=== PATIENT | male | born 1985 | race Caucasian/White ===

== ENCOUNTER → 2021-04-29 14:30 | Outpatient (BNVA) | payer MEDICAID, SELFPAY | PROVIDERS: PCP General Practice; Referring Provider General Practice; Visit Provider Surgery | DX: K40.90 Unilateral inguinal hernia, without obstruction or gangrene, not specified as recurrent (principal) | CPT/HCPCS: 99202 ==

== ENCOUNTER 2021-05-11 08:48 | Day surgery (SDC) | payer MEDICAID, SELFPAY ==
[2021-05-06 10:04] VITALS: BMI 31.2
--- NOTE | 2021-05-10 09:29 | HO.ANESPROP2 ---
Documented by User: Brittany Riddle 05/10/21 09:30 HPI - Anesthesia Eval Consult details Narrative: 36yo M for Right Hernia Repair Inguinal with Mesh [facility] Active Problems Active Problems: All Active Problems (Updated 04/29/21 @ 15:31 by Haroldo Abraham MD) Right inguinal hernia (Acute) Smoker (Acute) Past Medical History Medical History Right inguinal hernia Smoker Family History Family History Mother Breast cancer Surgical History Surgical History History of excision of mass Social History Social History Alcohol intake: never Patient Tobacco Use Status: Current everyday Tobacco user Use of substances other than those prescribed or required for medical reasons: Yes Are you DNR?: No Advance Directives: No Advance Directives Information Provided: Yes Meds Allergies Allergy/AdvReac Type Severity Reaction Status Date / Time No Known Allergies Allergy Verified 05/11/21 09:34 Home Medications Medication Instructions Recorded Confirmed Last Taken Type No Known Home Meds 04/29/21 05/06/21 Unknown History Exam Exam Date and Time: May 10, 2021 0929 Height,Weight and Vital Signs: Height 5 ft 7 in Weight 90.5 kg Assessment and Plan Assessment Anesthesia Assessment: Chart Reviewed Documented by User: Pau Aguirre 05/11/21 09:45 [facility] Past Medical History Medical History Right inguinal hernia Smoker Family History Family History Mother Breast cancer Surgical History Surgical History History of excision of mass Social History Social History Alcohol intake: never Patient Tobacco Use Status: Current everyday Tobacco user Use of substances other than those prescribed or required for medical reasons: Yes Are you DNR?: No Advance Directives: No Advance Directives Information Provided: Yes Meds Allergies Allergy/AdvReac Type Severity Reaction Status Date / Time No Known Allergies Allergy Verified 05/11/21 09:34 Home Medications Medication Instructions Recorded Confirmed Last Taken Type No Known Home Meds 04/29/21 05/06/21 Unknown History Exam Airway Mallampati Class: II TM Dist: >3cm Neck ROM: Full Assessment and Plan Assessment Anesthesia Assessment: Anesthesia Plan Discussed and Chart Reviewed Final Anesthetic Review NPO: Yes ASA Class: II Final Preanesthetic Review: No Changes in Pt Med Stat, Meds/Allgs Chart Reviewed, Consent Obtained/Reviewed and Anes Risks/Benef Reviewed Patient Risk: Low Procedure Risk: Low Assessment/Block/Sedation in SS: Assess/Block/Sedation-SS Anesthetic Plan Anesthetic Plan: GA Disposition: Standard PACU
[2021-05-11 09:35] VITALS: BP 123/82; PULSE 68; RESP 18; TEMP 36.4; O2SAT 96
[2021-05-11] MEDS: Lactated Ringers 1,000 ML 100 ML IVCONT (09:46)
--- NOTE | 2021-05-11 09:58 | MHC.SHP ---
Pre-Procedural Eval Section A Date of Service: 05/11/21 Section B Chief Complaint: Right Inguinal Hernia Allergies: Allergies Allergy/AdvReac Type Severity Reaction Status Date / Time No Known Allergies Allergy Verified 05/11/21 09:34 Plan I have reviewed the history and physical and performed a pertinent physical examination on my patient. No changes have occurred unless specified.
[2021-05-11 11:25] VITALS: BP 127/67; PULSE 58; RESP 18; TEMP 36.9; O2SAT 95
[2021-05-11 11:30] VITALS: BP 109/84; PULSE 63; RESP 16; O2SAT 95
[2021-05-11 11:35] VITALS: BP 106/68; PULSE 60; RESP 16; O2SAT 94
--- NOTE | 2021-05-11 11:38 | W.PM.OPN ---
Operative Note Operative Note Date of Service: 05/11/21 Narrative: Preop diagnosis: Right inguinal hernia Postop diagnosis: Right inguinal hernia, indirect Procedure: Repair of right inguinal hernia with mesh Surgeon: Haroldo Abraham MD The patient is a 36-year-old male with a reducible mass on the right groin consistent with a right inguinal hernia. He wanted to proceed with repair in view of symptoms. He understood the technique of procedure. He was aware of the risks, benefits, and alternatives He was brought to the operating room placed supine the table under general anesthesia via laryngeal mask airway. The right groin was prepped and draped in the usual sterile fashion. A surgical time-out was done. The patient received cefazolin 2 g IV preoperatively. I infiltrated the planned line of incision using lidocaine 1%. I made a short incision along an imaginary line from the anterior superior iliac spine to the pubic ramus using a blade 15 and this was carried down through the full-thickness of the skin subcutaneous fat down to the fascia. I bluntly dissected the area of the external oblique aponeurosis to define the external ring. I made an incision on the external oblique aponeurosis along its fibers using a blade 15 and this was extended inferomedially to connect with the external ring using an open tip pair of scissors. The inguinal canal was therefore entered. I applied hemostats on the edges of the divided external oblique aponeurosis. I applied a self-retaining retractor. I bluntly dissected the underside of the aponeurosis to create a pocket for the mesh. I then bluntly dissected the spermatic cord and its contents including a large hernia he using my index finger until was able to pass a [place] drain around this. This [place] drain was used for retraction. With traction countertraction was able to identify a hernia sac. There was a lot of a large fat containing hernia. I bluntly dissected the hernia off of the rest of the cord contents using DeBakey forceps. Part of the was intimately adherent to the cord contents so I had to divide this to be able to separate this. With continued dissection I was able to reduce this entire hernia including all its fat contents through the internal ring. This was therefore an indirect hernia. I was able to identify the vas deferens and its accompanying vessels in these were protected during the dissection. I reinforced the internal ring with a medium-sized plug. The plug was secured with Prolene 2-0 sutures using its inner leaves to the shelving edge of the inguinal ligament laterally, and the internal oblique superiorly and medially. I reinforced the floor of the canal with a keyhole mesh. The tails of the mesh were passed around the cord at the level of the internal ring and were secured together using Prolene 2-0 sutures. I secured the mesh to the shelving edge of the inguinal ligament laterally and the internal oblique superiorly and medially as well as the pubic ramus inferomedially with Prolene 2-0 sutures. I observed for hemostasis. Once hemostasis was ensured I proceeded to then irrigate. I closed the external oblique aponeurosis with a running Dexon 2-0 stitch to re-create the external ring. I reapposed the subcutaneous layer with Dexon 3-0 interrupted sutures. Skin closure was achieved with Dexon 4-0 subcuticular running stitch. Steri-Strips and dressings were applied. I infiltrated the area around the incision with Marcaine 0.5% for postop analgesia. The procedure was then completed. The patient tolerated the procedure well. There were no complications noted. Initial and final counts of sponges and instruments were correct. Estimated blood loss was about 15 cc. The patient was extubated without difficulty and transferred to the recovery room with stable vital signs.
[2021-05-11 11:40] VITALS: BP 121/62; PULSE 60; RESP 16; O2SAT 96
--- NOTE | 2021-05-11 11:45 | P.BOP_ITS ---
Brief Operative Note Date of Service: 05/11/21 Pre-op diagnosis: Right inguinal hernia Post-op diagnosis: same (Indirect) Procedure: Repair of right inguinal hernia with mesh Implants: Mesh Surgeon: Haroldo Abraham MD Anesthesia: GLMA Was an Application Technical Designer used for this Procedure?: No Estimated blood loss (mL): 10 Pathology: none sent Condition: stable Disposition: PACU
[2021-05-11] MEDS: Acetaminophen 325 MG TABLET 650 MG PO (11:48)
[2021-05-11] MEDS: oxyCODONE HCl Immed Release 5 MG TABLET PO (11:49)
[2021-05-11 11:55] VITALS: BP 128/78; PULSE 56; RESP 16; TEMP 36.9; O2SAT 97
== END 2021-05-11 12:10 | disposition home or self-care (01) ==
PROVIDERS: PCP Internal Medicine; Visit Provider Surgery
PROC: (CPT 49505; principal; 2021-05-11 11:00)
DX: K40.90 Unilateral inguinal hernia, without obstruction or gangrene, not specified as recurrent (principal); F17.200 Nicotine dependence, unspecified, uncomplicated
CPT/HCPCS: 49505; J0690; J1100; J2250; J2405; J3010

== ENCOUNTER → 2021-05-27 14:41 | Outpatient (BNVA) | payer MEDICAID, SELFPAY | PROVIDERS: PCP Internal Medicine; Referring Provider Internal Medicine; Visit Provider Surgery | DX: Z48.815 Encounter for surgical aftercare following surgery on the digestive system (principal); Z87.19 Personal history of other diseases of the digestive system | CPT/HCPCS: 99212 ==

== ENCOUNTER → 2021-06-09 09:52 | Outpatient (BNVA) | payer MEDICAID, SELFPAY | PROVIDERS: PCP Internal Medicine; Visit Provider Surgery | DX: Z48.815 Encounter for surgical aftercare following surgery on the digestive system (principal); Z87.19 Personal history of other diseases of the digestive system | CPT/HCPCS: 99212 ==

== ENCOUNTER → 2021-07-12 13:30 | Outpatient (BNVA) | payer MEDICAID, SELFPAY | PROVIDERS: PCP Internal Medicine; Referring Provider Internal Medicine; Visit Provider Surgery | DX: K40.90 Unilateral inguinal hernia, without obstruction or gangrene, not specified as recurrent (principal) | CPT/HCPCS: 99211 ==

== ENCOUNTER 2021-09-16 22:44 | Emergency (ER) | payer MEDICAID, SELFPAY ==
--- NOTE | 2021-09-16 | ECG_ITS ---
Test Reason : OD Blood Pressure : / mmHG Vent. Rate : 074 BPM Atrial Rate : 074 BPM P-R Int : 132 ms QRS Dur : 094 ms QT Int : 446 ms P-R-T Axes : 054 044 050 degrees QTc Int : 495 ms Normal sinus rhythm Nonspecific T wave abnormality Abnormal ECG When compared with ECG of 16-SEP-2021 23:05, Vent. rate has decreased BY 39 BPM Referred By: Austin Julio Electronically Signed By:DENZEL MORA MD
--- NOTE | ~2021-09-16 | CT_ITS ---
EXAMINATION: CT HEAD WITHOUT CONTRAST CLINICAL INFORMATION: Confusion COMPARISON: None TECHNIQUE: Contiguous axial imaging was performed from the skull base to vertex without intravenous administration of contrast. This CT examination was performed using dose optimization techniques as appropriate, variously including the following: *Automated exposure control *Adjustment of mA and/or kV according to patient size (this includes techniques or standardized protocols for targeted exams where dose is matched to indication/reason for exam; i.e. extremities or head) *Use of iterative reconstruction technique DLP: 746 mGy-cm FINDINGS: There is no evidence of acute intracranial hemorrhage or territorial infarction. No abnormal mass effect or midline shift is seen. Arreola to white matter differentiation is well preserved. No extra-axial fluid collections are identified. The ventricles are normal in size. There is no abnormal attenuation within the brain parenchyma. The osseous structures and soft tissues are normal. Partial opacification of the left ethmoid sinus. The mastoid air cells and visualized portions of the remainder of the the paranasal sinuses are well aerated. CT/CT head/brain wo con IMPRESSION: No CT evidence of acute intracranial pathology. Left ethmoid sinus disease.
[2021-09-16 22:56] LABS: Glucose, Whole Blood 122 mg/dL (60-115)
[2021-09-16 23:11] VITALS: BP 104/61; BP 153/96; PULSE 106; PULSE 110; RESP 22; TEMP 36.9; O2SAT 95; BMI 36.0
[2021-09-16 23:13] LABS: MANUAL DIFF FLAG NO
[2021-09-16 23:21] LABS: Glucose, Whole Blood 111 mg/dL (60-115)
[2021-09-16 23:21] LABS: Basophils Absolute Auto 0.1 X10*3/uL (0.0-0.2); Basophils Percent Auto 0.4 % (0-2); Eosinophils Absolute Auto 0.1 X10*3/uL (0.0-0.4); Hematocrit 48.1 % (42.0-52.0); Hemoglobin 16.7 g/dl (14.0-18.0); Imm Gran Abs Auto 0.03 X10*3/uL (0.00-0.03); Imm Gran Pct Auto 0.3 % (0.0-0.4); Lymphocytes Absolute Auto 2.6 X10*3/uL (1.2-4.9); Lymphocytes Percent Auto 22.2 % (20-40); Mean Corpuscular HGB Conc 34.7 g/dl (31.0-36.0); Mean Corpuscular Hemoglobin 31.9 pg (27.0-33.0); Mean Corpuscular Volume 91.8 fL (80.0-98.0); Mean Platelet Volume 9.7 fL (9.4-12.4); Monocytes Absolute Auto 0.5 X10*3/uL (0.1-1.2); Monocytes Percent Auto 4.2 % (2-11); Neutrophils Absolute Auto 8.3 x10*3/uL (2.0-8.3); Neutrophils Percent Auto 71.9 % (45-73); Platelet Count 251 X10*3/uL (160-400); Red Blood Count 5.24 X10*6/uL (4.60-5.80); Red Cell Distribution Width 13.1 % (11.0-16.0); White Blood Count 11.5 X10*3/uL (4.8-10.8)
[2021-09-16 23:36] LABS: Alanine Aminotransferase 99 U/L (0-40); Albumin Level 4.7 g/dL (3.5-5.0); Alkaline Phosphatase 71 U/L (39-117); Anion Gap 17 (12-20); Aspartate Amino Transferase 54 U/L (5-37); Bilirubin Direct 0.2 mg/dL (0.0-0.5); Bilirubin Total 0.5 mg/dL (0.0-1.0); Blood Urea Nitrogen 13 mg/dL (9-16); Calcium 9.8 mg/dL (8.4-10.2); Carbon Dioxide 21 mmol/L (22-29); Chloride 105 mmol/L (96-108); Creatinine Clr Calc Pharmacy 90.2; Estimated Glomerular Filt Rate > 60; Glucose Random 125 mg/dL (60-115); Lipase 25 U/L (8-78); Magnesium 2.4 mg/dL (1.6-2.6); Potassium 3.5 mmol/L (3.3-5.1); Salicylate < 5.0 mg/dL (15-30); Sodium 139 mmol/L (135-145); Total Protein 7.9 g/dL (6.5-8.0)
[2021-09-16 23:43] LABS: Ethanol < 10 mg/dL
[2021-09-16 23:49] LABS: Acetaminophen LAB < 1 mcg/mL (<30)
[2021-09-17] VITALS (16 sets, daily range): BP systolic 81–114; BP diastolic 41–66; PULSE 55–79; RESP 14–26; TEMP 36.6; O2SAT 94–99
--- NOTE | 2021-09-17 00:56 | ED.OVERDOSE ---
HPI - Overdose General Chief Complaint: Overdose Stated Complaint: OD/SI Time Seen by Provider: 09/16/21 23:11 Source: EMS Mode of arrival: EMS Limitations: altered mental status History of Present Illness HPI Narrative: 36-year-old male came in by ambulance for further evaluation of overdosed. Patient brought in after overdosed on unknown amount of 900 mg ibuprofen, and 30 pills of 1 mg of Klonopin, 12 tablets of Xanax, unknown amount and strength of clonidine, unknown amount of melatonin, patient arrived to the ED unresponsive, able to protect airway with good gag reflex, unable to provide history due to lethargy. Above history was obtained from EMS report. Patient and his significant other both overdosed on the same medications. Related Data Previous Rx's Medication Instructions Recorded ibuprofen 600 mg tablet 600 mg PO Q6H PRN #30 tab 05/11/21 Allergies Allergy/AdvReac Type Severity Reaction Status Date / Time No Known Allergies Allergy Verified 07/12/21 14:08 Review of Systems Review of Systems: Yes Unobtainable due to mental status PMFSH Past Medical History Medical History Right inguinal hernia Smoker Surgical History History of excision of mass History of right inguinal hernia repair Family History Family History Mother Breast cancer Social History Social History Alcohol intake: never Patient Tobacco Use Status: Current everyday Tobacco user Advance Directives: No Advance Directives Information Provided: No Physical Exam Vital Signs: Vital Signs: Last Vital Signs Temp 98.4 F 09/16/21 23:11 Pulse 71 09/17/21 00:46 Resp 26 H 09/17/21 00:46 BP 95/56 L 09/17/21 01:03 Pulse Ox 96 09/17/21 01:03 Oxygen Flow Rate 2 09/16/21 23:11 Body Mass Index 36.0 Vital signs have been reviewed as appeared to be correct. Blood pressure normal. Heart rate normal. Respiration rate normal. Temperature normal. Oxygen saturation normal. Appearance: Lethargic, only respond to chest rubbing. Head: Normal external exam. Normocephalic. Atraumatic. No Garza signs noted. No raccoon eyes noted Eyes: PERRLA. EOMI. Conjunctiva and sclera normal. Eyelids normal. ENT: TM's Normal. Pharynx normal. Uvula midline. Moist mucous membranes. No trismus noted. No drooling noted. No muffled voice noted. Neck: Normal inspection. Neck supple. FROM. No adenopathy. Thyroid Normal. No meningeal signs. No neck mass noted. CVS: Normal heart rate and rhythm. Heart sound normal. No murmurs noted. Pulses normal throughout. Respiratory: No respiratory distress. Painless inspiration. Breath sounds normal. No wheezes/rales/rhonchi noted. Chest nontender. No accessory muscle usage noted or decreased air movement noted. Abdomen: Soft and nontender. Bowel sounds normal in all 4 quadrants. No distention noted. No organomegaly noted. No visible injury noted. Back: No CVA tenderness. Full range of motion noted. Skin: Skin warm and dry. Normal skin color. Normal skin turgor. No rashes/lesions/lacerations noted. Extremities: No lower extremity edema. Extremities exhibit normal range of motion. Extremities nontender. Neuro: Lethargic. Cranial nerve exam: II-XII are grossly intact No motor deficit. No sensory deficit. Reflexes normal. Course Course Course Narrative: Assessment and plan. 36-year-old male overdosed on multiple medications please refer to HPI. 1. Continue monitoring airway. 2. Repeat labs in 4 hours. 3. Replete potassium and keep it above 4. 4. Cardiac monitoring. 5. Case discussed with poison Control to monitor the patient for 6-8 hours. 6. Psych evaluation when he is more awake. 7. Consider fluid/ vasopressor for hypotension. Case signed to Dr. Julio. MDM - Overdose Medical Records Attestation: I reviewed the patient's medical records. Lab Data Attestation: I reviewed the patient's lab results. Result diagrams: 09/16/21 23:08 09/16/21 23:08 Labs: Lab Results 09/16/21 09/16/21 09/16/21 Range/Units 22:54 23:08 23:08 WBC 11.5 H (4.8-10.8) X10*3/uL RBC 5.24 (4.60-5.80) X10*6/uL Hgb 16.7 (14.0-18.0) g/dl Hct 48.1 (42.0-52.0) % MCV 91.8 (80.0-98.0) fL MCH 31.9 (27.0-33.0) pg MCHC 34.7 (31.0-36.0) g/dl RDW 13.1 (11.0-16.0) % Plt Count 251 (160-400) X10*3/uL MPV 9.7 (9.4-12.4) fL Immature Gran % (Auto) 0.3 (0.0-0.4) % Neut % (Auto) 71.9 (45-73) % Lymph % (Auto) 22.2 (20-40) % [place] % (Auto) 4.2 (2-11) % Eos % (Auto) 1.0 (0-4) % Baso % (Auto) 0.4 (0-2) % Lymph # (Auto) 2.6 (1.2-4.9) X10*3/uL [place] # (Auto) 0.5 (0.1-1.2) X10*3/uL Eos # (Auto) 0.1 (0.0-0.4) X10*3/uL Baso # (Auto) 0.1 (0.0-0.2) X10*3/uL Abs Immat Gran (auto) 0.03 (0.00-0.03) X10*3/uL Absolute Neuts (auto) 8.3 (2.0-8.3) x10*3/uL Absolute Nucleated RBC 0.000 (0.0-0.012) X10*3/uL Nucleated RBC % (auto) 0.0 (0.0-0.2) /100WBC Sodium 139 (135-145) mmol/L Potassium 3.5 (3.3-5.1) mmol/L Chloride 105 (96-108) mmol/L Carbon Dioxide 21 L (22-29) mmol/L Anion Gap 17 (12-20) BUN 13 (9-16) mg/dL Creatinine 1.29 (0.5-1.4) mg/dL Estim Creat Clear Calc 90.2 Estimated GFR > 60 POC Glucose 122 H (60-115) mg/dL Random Glucose 125 H (60-115) mg/dL Calcium 9.8 (8.4-10.2) mg/dL Magnesium 2.4 (1.6-2.6) mg/dL Total Bilirubin 0.5 (0.0-1.0) mg/dL Direct Bilirubin 0.2 (0.0-0.5) mg/dL AST 54 H (5-37) U/L ALT 99 H (0-40) U/L Alkaline Phosphatase 71 (39-117) U/L Total Protein 7.9 (6.5-8.0) g/dL Albumin 4.7 (3.5-5.0) g/dL Lipase 25 (8-78) U/L Salicylates < 5.0 L (15-30) mg/dL Acetaminophen < 1 (<30) mcg/mL Ethyl Alcohol mg/dL 09/16/21 09/16/21 Range/Units 23:08 23:16 WBC (4.8-10.8) X10*3/uL RBC (4.60-5.80) X10*6/uL Hgb (14.0-18.0) g/dl Hct (42.0-52.0) % MCV (80.0-98.0) fL MCH (27.0-33.0) pg MCHC (31.0-36.0) g/dl RDW (11.0-16.0) % Plt Count (160-400) X10*3/uL MPV (9.4-12.4) fL Immature Gran % (Auto) (0.0-0.4) % Neut % (Auto) (45-73) % Lymph % (Auto) (20-40) % [place] % (Auto) (2-11) % Eos % (Auto) (0-4) % Baso % (Auto) (0-2) % Lymph # (Auto) (1.2-4.9) X10*3/uL [place] # (Auto) (0.1-1.2) X10*3/uL Eos # (Auto) (0.0-0.4) X10*3/uL Baso # (Auto) (0.0-0.2) X10*3/uL Abs Immat Gran (auto) (0.00-0.03) X10*3/uL Absolute Neuts (auto) (2.0-8.3) x10*3/uL Absolute Nucleated RBC (0.0-0.012) X10*3/uL Nucleated RBC % (auto) (0.0-0.2) /100WBC Sodium (135-145) mmol/L Potassium (3.3-5.1) mmol/L Chloride (96-108) mmol/L Carbon Dioxide (22-29) mmol/L Anion Gap (12-20) BUN (9-16) mg/dL Creatinine (0.5-1.4) mg/dL Estim Creat Clear Calc Estimated GFR POC Glucose 111 (60-115) mg/dL Random Glucose (60-115) mg/dL Calcium (8.4-10.2) mg/dL Magnesium (1.6-2.6) mg/dL Total Bilirubin (0.0-1.0) mg/dL Direct Bilirubin (0.0-0.5) mg/dL AST (5-37) U/L ALT (0-40) U/L Alkaline Phosphatase (39-117) U/L Total Protein (6.5-8.0) g/dL Albumin (3.5-5.0) g/dL Lipase (8-78) U/L Salicylates (15-30) mg/dL Acetaminophen (<30) mcg/mL Ethyl Alcohol < 10 mg/dL ECG Data Attestation: I personally reviewed and interpreted this ECG as follows: Interpretation: Sinus tachycardia at 113 beats per minutes, normal intervals, normal axis deviation, no ST-T changes. Discharge Plan Discharge Clinical Impression: Suicide attempt by multiple drug overdose Prescriptions: No Action ibuprofen 600 mg tablet 600 mg PO Q6H PRN (Reason: pain) Qty: 30 RF: 0
--- NOTE | 2021-09-17 01:05 | PC.NURSE ---
poison controll called spoke with Sofy. monitor pt for 6-8 hours, repeat ekg, repeat labs in 4 hours from time of last drawn labs. start pressors for hypotension if needed, monitor k+ and keep above 4 and replace if needed. atropine for bradycardia. this information given to dr de la rosa.
--- NOTE | 2021-09-17 01:07 | PC.NURSE ---
pt was incont of urine stool and vomit. pt is still drowsy and has garbaled speach. pt is not understandable but has kicked with his legs.
[2021-09-17] MEDS: Potassium Chloride/H20 10 MEQ/100 ML PIGGYBACK 100 MEQ IV (01:14)
--- NOTE | 2021-09-17 01:44 | PC.NURSE ---
pt is now talking due to he was irritated with care at the time. pt speach is mubbled unclear most of the time. pt meds taken unsure information by pt at this time.
--- NOTE | 2021-09-17 03:56 | ECG_ITS ---
Test Reason : checking QT interval Blood Pressure : / mmHG Vent. Rate : 113 BPM Atrial Rate : 113 BPM P-R Int : 122 ms QRS Dur : 094 ms QT Int : 366 ms P-R-T Axes : 064 084 070 degrees QTc Int : 502 ms Sinus tachycardia Nonspecific T wave abnormality Abnormal ECG No previous ECGs available Referred By: Austin Julio Electronically Signed By:DENZEL MORA MD
[2021-09-17] MEDS: 0.9 % Sodium Chloride 1,000 ML 999 ML IVCONT ×2 (04:32→05:40)
--- NOTE | 2021-09-17 04:42 | PC.NURSE ---
poison controll called back and ekg results reported. labs pending at this time. pt speach is still garbbled yet when he wants to he can speak in full sentence. pt still not stating why the overdose. amelia conklin.
[2021-09-17 05:09] LABS: Anion Gap 12 (12-20); Blood Urea Nitrogen 13 mg/dL (9-16); Calcium 8.5 mg/dL (8.4-10.2); Carbon Dioxide 23 mmol/L (22-29); Chloride 111 mmol/L (96-108); Creatinine Clr Calc Pharmacy 92.4; Estimated Glomerular Filt Rate > 60; Glucose Random 95 mg/dL (60-115); Potassium 4.1 mmol/L (3.3-5.1); Sodium 142 mmol/L (135-145)
--- NOTE | 2021-09-17 05:53 | PC.NURSE ---
pt gets upset with waking pt. bp low and reassessing, ivf wide open 2l. pt still not voiding for a urine to be collected. bp retaken 110/66/80
[2021-09-17] MEDS: ondansetron HCL 4 MG/2 ML VIAL IVPUSH (06:21)
[2021-09-17 06:35] LABS: Appearance Urine CLEAR; Color Urine YELLOW; Glucose Urine UA NEG (NEG); Leukocyte Esterase Urine NEG (NEG); Nitrite Urine NEG (NEG); Specific Gravity - Urine 1.025 (1.005-1.025); Urine Blood NEG (NEG); Urine Ketones NEG (NEG); Urine Protein NEG (NEG-TRACE)
[2021-09-17 06:40] LABS: Amphetamine Screen Urine Not Detected (Not Detect); Barbiturates, Urine Not Detected (Not Detect); Benzodiazepines Screen Urine Not Detected (Not Detect); Cannabinoid Screen Urine POSITIVE (Not Detect); Cocaine Screen Urine Not Detected (Not Detect); Fentanyl, urine Not Detected (Not Detect); Opiate Screen Urine Not Detected (Not Detect); Phencyclidine Screen Urine Not Detected (Not Detect)
--- NOTE | 2021-09-17 08:40 | PC.NURSE ---
POISON CONTROL FOLLOW UP RECCOMENDS EKG AND LFTS
--- NOTE | 2021-09-17 08:41 | ECG_ITS ---
Test Reason : repeat Blood Pressure : / mmHG Vent. Rate : 061 BPM Atrial Rate : 061 BPM P-R Int : 142 ms QRS Dur : 098 ms QT Int : 354 ms P-R-T Axes : 051 038 045 degrees QTc Int : 356 ms Normal sinus rhythm T wave abnormality, consider inferior ischemia Abnormal ECG When compared with ECG of 17-SEP-2021 04:40, No significant changes seen Referred By: Gonzalo Jaramillo Electronically Signed By:DENZEL MORA MD
[2021-09-17 09:43] LABS: Alanine Aminotransferase 74 U/L (0-40); Albumin Level 3.9 g/dL (3.5-5.0); Alkaline Phosphatase 55 U/L (39-117); Aspartate Amino Transferase 35 U/L (5-37); Bilirubin Direct 0.2 mg/dL (0.0-0.5); Bilirubin Total 0.6 mg/dL (0.0-1.0); Total Protein 6.3 g/dL (6.5-8.0)
[2021-09-17] MEDS: 0.9 % Sodium Chloride 1,000 ML 999 ML IV (12:15)
--- NOTE | 2021-09-17 19:30 | PC.NURSE ---
PTS BEHAVIOR IS OBSERVED TO BE ESCALATED THROUGHOUT THE DAY. PT HYPERFOCUSED ON EXITS, INTRUSIVE W/STAFF, VERBALLY AGGRESSIVE, POSTURING TOWARD MAYTE RN. PT OFFERED PRN MEDS WHICH HE DECLINED/REFUSED. PT THEN LUNGING AT STAFF REQUIRING PHYSICAL REDIRECTION, PT PUNCHING, KICKING, THREATENING STAFF, UNABLE TO MAINTAIN HIS OWN SAFETY OR FOLLOW DIRECTIONS . PT EXTREMELY COMBATIVE, REQUIRING SECURITY TO HANDCUFF FOR HIS OWN SAFETY WELL THE SAFETY OF THE STAFF. PT WAS MEDICATED PER [facility], AND [facility] CALLED PER SECURITY DIRECTION, AND ASSISTED WITH PT TRANSFER FROM FLOOR TO STRETCHER AND PT PLACED IN 4 PT RESTRAINTS. PT REQUIRING ADDITIONAL MEDICATION TO ENABLE PARTICIPATION IN CARE. 1:[address] AT THIS TIME.
[2021-09-17] MEDS: OLANZapine 10 MG VIAL IM (19:38)
[2021-09-17] MEDS: Haloperidol Lactate 5 MG/ML VIAL IM (19:55)
[2021-09-17] MEDS: diphenhydrAMINE HCL 50 MG/ML VIAL IM (19:55)
[2021-09-17] MEDS: LORazepam 2 MG/ML VIAL IM (19:55)
[2021-09-17] MEDS: Ketamine HCl 500 MG/5 ML VIAL 50 MG IM (20:26)
--- NOTE | 2021-09-17 21:13 | PC.NURSE ---
pt became verbally hostile towards staff would no longer stay in room, stared entering other patients rooms, verbal redirection attempted, security was called and medications were ordered, patient became violent with staff began throwing punches and kicks, staff guided patient to ground, meds were given patient still fighting with staff, PD was called and helped place patient back in bed, 4 point restraint was started. will continue to monitor.
[2021-09-17 22:33] LABS: COVID-19 Test Negative (Negative)
[2021-09-18] VITALS (7 sets, daily range): BP systolic 99–126; BP diastolic 53–72; PULSE 78–82; RESP 16–18; TEMP 36.4–36.6; O2SAT 95–97
--- NOTE | 2021-09-18 05:47 | PC.NURSE ---
Patient just got transferred from main ED, patient not steady on gait due to medical restraint, cleared by position control per report, patient is awaiting BHN evaluation, BHN attempted to evaluate yesterday but patient was not appropriate, will continue to monitor.
--- NOTE | 2021-09-18 07:39 | PC.NURSE ---
patient awake early but appears mildly confused, having difficulty with phone usage, demonstrated to patient that phone works, patient reluctant to put on clothes, unclear if patient calling active phone numbers.
--- NOTE | 2021-09-18 09:55 | PC.NURSE ---
client tries to open care team door going back to his room, clients speaks of ice machine. client got off phone about 10 minutes ago and asks where his GF went, t/w explains she is on another floor, patient very confused.
--- NOTE | 2021-09-18 10:53 | PC.NURSE ---
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 t/w asked client to take a break from phone activity for now. client offered tylenol which he previously requested and patient declined.
--- NOTE | 2021-09-18 12:05 | PC.NURSE ---
patient seems still highly confused, had visit from father in law but client looks in other rooms doors, doesnt seem oriented to where he is or seems to forget what we tell him.
[2021-09-18 13:54] LABS: MANUAL DIFF FLAG NO
[2021-09-18 14:03] LABS: Ammonia 39 umol/L (13-55)
[2021-09-18 14:13] LABS: Basophils Percent Auto 0.4 % (0-2); Eosinophils Absolute Auto 0.1 X10*3/uL (0.0-0.4); Eosinophils Percent Auto 0.9 % (0-4); Hematocrit 44.7 % (42.0-52.0); Hemoglobin 14.4 g/dl (14.0-18.0); Imm Gran Abs Auto 0.03 X10*3/uL (0.00-0.03); Imm Gran Pct Auto 0.3 % (0.0-0.4); Lymphocytes Absolute Auto 2.4 X10*3/uL (1.2-4.9); Lymphocytes Percent Auto 21.3 % (20-40); Mean Corpuscular HGB Conc 32.2 g/dl (31.0-36.0); Mean Corpuscular Hemoglobin 30.6 pg (27.0-33.0); Mean Corpuscular Volume 95.1 fL (80.0-98.0); Mean Platelet Volume 10.3 fL (9.4-12.4); Monocytes Absolute Auto 0.6 X10*3/uL (0.1-1.2); Neutrophils Percent Auto 72.1 % (45-73); Platelet Count 223 X10*3/uL (160-400); Red Cell Distribution Width 13.6 % (11.0-16.0)
[2021-09-18 14:14] LABS: Alanine Aminotransferase 80 U/L (0-40); Albumin Level 4.6 g/dL (3.5-5.0); Alkaline Phosphatase 71 U/L (39-117); Anion Gap 13 (12-20); Aspartate Amino Transferase 77 U/L (5-37); Bilirubin Direct 0.4 mg/dL (0.0-0.5); Bilirubin Total 1.1 mg/dL (0.0-1.0); Blood Urea Nitrogen 13 mg/dL (9-16); Carbon Dioxide 24 mmol/L (22-29); Chloride 109 mmol/L (96-108); Creatinine Clr Calc Pharmacy 89.5; Estimated Glomerular Filt Rate > 60; Glucose Random 88 mg/dL (60-115); Potassium 3.7 mmol/L (3.3-5.1); Salicylate < 5.0 mg/dL (15-30); Sodium 142 mmol/L (135-145); Total Protein 7.5 g/dL (6.5-8.0)
[2021-09-18 14:25] LABS: Acetaminophen LAB < 1 mcg/mL (<30)
[2021-09-18 14:32] LABS: Thyroid Stimulating Hormone 0.95 uIU/mL (0.32-4.0)
[2021-09-18] MEDS: Haloperidol Lactate 5 MG/ML VIAL 10 MG IM (14:52)
[2021-09-18] MEDS: diphenhydrAMINE HCL 50 MG/ML VIAL IM (14:52)
[2021-09-18] MEDS: LORazepam 2 MG/ML VIAL IM (15:01)
--- NOTE | 2021-09-18 15:24 | PC.NURSE ---
patient seemingly a little disinhibited talking about ex girlfriends shes probably banging some other dude
[2021-09-19 00:51] VITALS: BP 137/77; PULSE 104; RESP 17; TEMP 36.8; O2SAT 95
--- NOTE | 2021-09-19 12:22 | PC.NURSE ---
patient approaches t/w states he would like to be reassessed and discharged
== END 2021-09-19 14:02 | disposition home or self-care (01) ==
PROVIDERS: Emergency Medicine; Nurse Practitioner Family; Physician Assistant; Emergency Provider Emergency Medicine
DX: T39.312A Poisoning by propionic acid derivatives, intentional self-harm, initial encounter (principal); T42.4X2A Poisoning by benzodiazepines, intentional self-harm, initial encounter; T46.5X2A Poisoning by other antihypertensive drugs, intentional self-harm, initial encounter; Y92.9 Unspecified place or not applicable; R45.1 Restlessness and agitation; F20.9 Schizophrenia, unspecified; Z20.822 Contact with and (suspected) exposure to COVID-19
CPT/HCPCS: 36415; 70450; 80048; 80053; 80076; 80143; 80179; 80307; 81003; 82077; 82140; 82248; 82947; 83690; 83735; 84443; 85025; 87635; 93005; 96361; 96365; 96372; 96375; 99285; J1200; J2060; J2405

== ENCOUNTER 2022-02-12 22:15 | Emergency (ER) | payer MEDICAID, SELFPAY ==
[2022-02-12 22:22] VITALS: BP 147/76; PULSE 80; RESP 14; TEMP 36.8; O2SAT 98; BMI 29.6
--- NOTE | 2022-02-12 22:37 | ED_ITS ---
HPI - Eye Problem General Chief complaint: Eye Problems Stated complaint: left eye swollen Source: patient Mode of arrival: ambulatory Limitations: no limitations History of Present Illness HPI Narrative: 37-year-old male presents with left eye lid swelling with suspected tick or foreign body in the eyelid. MD chief complaint: eye pain, eye redness and eye injury Onset (ago): day(s) (2) Onset description: gradual Duration: constant Location: left eye Eye Symptoms: redness Place: street/outdoors Severity: moderate Severity scale (1-10): 6 If Pain, Quality: burning and aching Context: other (Possible tick bite) Associated symptoms: none Related Data Patient tetanus UTD: No Previous Rx's Medication Instructions Recorded doxycycline monohydrate 100 mg 100 mg PO Q12H 14 Days #28 cap 02/12/22 capsule Allergies Allergy/AdvReac Type Severity Reaction Status Date / Time No Known Allergies Allergy Verified 07/12/21 14:08 Review of Systems Review of Systems: Constitutional: No Fever, No Chills ENT/Mouth: No Ear Pain, No Hoarseness, No sore throat Eyes: No Eye Pain, positive eyelid Swelling, positive eyelid Redness, No Foreign Body Cardiovascular: No Chest Pain, No SOB Respiratory: No Cough, No Dyspnea Gastrointestinal: No Nausea, No Vomiting, No Diarrhea, No abdominal Pain Genitourinary: No Dysuria, No Hematuria Musculoskeletal: No joint pain, No Myalgias, No Joint Swelling Skin: No Skin lacerations, No rash Neuro: No Weakness, No Numbness, No Paresthesias, No Loss of Consciousness, No Dizziness, No Headache Psych: No Anxiety/Panic, No Depression Heme/Lymph: no easy bruising, no Lymphadenopathy Endocrine: No Polyuria, No Polydipsia Yes all other systems are reviewed and are negative [facility] Past Medical History Attestation statement: The following information was validated with the patient. Source: old records reviewed Medical History Right inguinal hernia Smoker Surgical History History of excision of mass History of right inguinal hernia repair Family History Family History Mother Breast cancer Social History Social History Alcohol intake: never Patient Tobacco Use Status: Current everyday Tobacco user Advance Directives: No Physical Exam Vital Signs: Vital Signs: Last Vital Signs Temp 98.3 F 02/12/22 22:22 Pulse 80 02/12/22 22:22 Resp 14 02/12/22 22:22 BP 147/76 H 02/12/22 22:22 Pulse Ox 98 02/12/22 22:22 BMI result Body Mass Index 29.6 Appearance: Alert. Oriented X3. No acute distress. Eyes: Pupils equal, round and reactive to light. Both eyelids on the left eye erythematous and swollen, noted with foreign body suspected to be a tick to the lower lid. ENT: Pharynx normal. Neck: Normal inspection. Neck supple. CVS: Normal heart rate and rhythm. Pulses normal. Respiratory: No respiratory distress. Breath sounds normal. Abdomen: Soft and nontender. Skin: Skin warm and dry. Normal skin color. Normal skin turgor. Extremities: No lower extremity edema. Gait well-balanced well coordinated. Neuro: No motor deficit. No sensory deficit. Cranial nerves 2-12 intact. Course Course Course Narrative: 37-year-old male presents with swollen left eyelid suspected to have a tick bite to the lower lid. Foreign body in place, unknown if it is a tick, I did remove it with a needle after cleaning with isopropyl alcohol. Patient does have pets and works outside daily. No changes in vision or erythema noted to the conjunctiva. Will treat for cellulitis with suspected tick bite with doxycycline. Patient does understand doxycycline and sunshine interaction. Will update Tdap vaccine today.Patient verbalized understanding of and agrees to plan of care to discharge home. Verbalized understanding of signs and symptoms indicating need for emergent intervention MDM - Eye Problem MDM Narrative Medical decision making narrative: Eyelid edema Differential Diagnosis Differential diagnosis: Likely corneal abrasion, conjunctivitis, periorbital cellulitis and subconjunctival hemorrhage Medical Records Attestation: I reviewed the patient's medical records. Discharge Plan Discharge Clinical Impression: Eyelid cellulitis, Tick bite Patient Disposition: Home, Self-Care Instructions: Cellulitis (ED), Tick Bite (ED) Additional Instructions: You were evaluated for left eyelid swelling and erythema with suspected tick bite. Removed the foreign body from her eyelid. Please take doxycycline 100 mg for the next 14 days. Do not expose yourself to the [place] while taking doxycycline. [place] and doxycycline will cause a painful blistery rash. Please wear sunscreen, long sleeves and a hat. Follow-up with primary care physician. We updated your Tdap vaccine today. Thank you for choosing this emergency department for evaluation. Please follow-up with primary care physician as needed. Return to the emergency department for any new, concerning, or worsening symptoms. Prescriptions: New doxycycline monohydrate 100 mg capsule 100 mg PO Q12H 14 Days Qty: 28 0RF
[2022-02-12] MEDS: Diphth,Pertus(ACell),Tet Adult 0.5 ML SYRINGE IM (22:59)
== END 2022-02-13 00:07 | disposition home or self-care (01) ==
PROVIDERS: Emergency Provider Emergency Medicine Emergency Medical Services
DX: H00.035 Abscess of left lower eyelid (principal); S00.262A Insect bite (nonvenomous) of left eyelid and periocular area, initial encounter; W57.XXXA Bitten or stung by nonvenomous insect and other nonvenomous arthropods, initial encounter; Y93.9 Activity, unspecified; Y92.9 Unspecified place or not applicable; Y99.9 Unspecified external cause status
CPT/HCPCS: 90715; 99283; 99284

== ENCOUNTER 2022-02-16 18:11 | Emergency (ER) | payer MEDICAID, SELFPAY ==
[2022-02-16 19:17] VITALS: BP 139/77; PULSE 68; RESP 18; TEMP 36.5; O2SAT 99; BMI 33.5
--- NOTE | 2022-02-16 19:37 | ED.GENADULT ---
HPI - General Adult General Chief complaint: General Medical Stated complaint: L eye/tick bite Time Seen by Provider: 02/16/22 19:37 Source: patient Mode of arrival: ambulatory Limitations: no limitations History of Present Illness HPI narrative: 37-year-old male presents to the ER for evaluation of left mariola orbital swelling and redness. He presents from the eye doctor who wanted him to be evaluated for possible periorbital cellulitis. He was seen here in the emergency department on 02/12 after a possible tick bite to left periorbital area. He was discharged on oral doxycycline which she has been taking. He reports the redness and pain of the area is improving with the medication but there is still slight swelling underneath the left eye. He denies any vision changes, pain with eye movement, fever, chills, headache. No foreign body sensation in the eye. He is not diabetic. MD complaint: Periorbital swelling Onset (ago): day(s) (5) Location: face Radiation: non-radiation Severity: mild Severity scale (1-10): 3 Quality: aching Pain Consistency: constant Relieving factors: medication Exacerbating factors: none Associated symptoms: denies other symptoms Treatments prior to arrival: other (Doxycycline) Related Data Previous Rx's Medication Instructions Recorded doxycycline monohydrate 100 mg 100 mg PO Q12H 14 Days #28 cap 02/12/22 capsule amoxicillin 875 mg-potassium 1 tab PO BID #14 tab 02/16/22 clavulanate 125 mg tablet Allergies Allergy/AdvReac Type Severity Reaction Status Date / Time No Known Allergies Allergy Verified 07/12/21 14:08 Review of Systems Review of Systems: Constitutional: No Fever, No Chills ENT/Mouth: No sore throat, No Rhinorrhea, No Swallowing Difficulty Eyes: + Eye Pain, + Swelling, + Redness, No vision changes, No FB sensation Cardiovascular: No Chest Pain, No SOB Respiratory: No Cough, No Sputum Gastrointestinal: No Nausea, No Vomiting Musculoskeletal: No joint pain, No Myalgias Skin: No Skin Lesions, No rash Neuro: No Weakness, No Numbness, No Dizziness, No Headache Heme/Lymph: No Bruising, No Lymphadenopathy PMFSH Past Medical History Medical History Right inguinal hernia Smoker Surgical History History of excision of mass History of right inguinal hernia repair Family History Family History Mother Breast cancer Social History Social History Alcohol intake: never Patient Tobacco Use Status: Current everyday Tobacco user Advance Directives: No Physical Exam ED Vital Signs: Vital Signs - 24 hr 02/16/22 19:17 Temperature 97.7 F Pulse Rate 68 Respiratory Rate 18 Blood Pressure 139/77 Pulse Oximetry 99 BMI result Body Mass Index 33.5 Appearance: Alert. Oriented X3. No acute distress. HEENT: Left periorbital area with mild amount swelling to the area under the left eye, minimal warmth, minimal erythema, no induration. EOMI and PERRLA. Normal inspection upper eyelid and supraorbital area. CVS: Normal heart rate and rhythm. Pulses normal. Respiratory: No respiratory distress. Skin: Skin warm and dry. Normal skin color. Normal skin turgor. No rashes. Extremities: Normal inspection x4, normal range of motion. Neuro: Oriented X 3. No motor deficit. No sensory deficit. Course Course Course Narrative: 37 y/o male with recent tick bite to the left periorbital area presents to the ER for evaluation of possible evolving periorbital cellulitis. On examination there is mild swelling and erythema of the area below the left eye without extension laterally or superiorly. He reports the swelling and pain are getting better with antibiotics. Will check CBC, basic labs and inflammatory markers. At this time it does not appear he has periorbital cellulitis. Reevaluation(s) Reevaluation #1: No leukocytosis, inflammatory markers are normal. Doubt periorbital cellulitis. Will add Augmentin for additional antimicrobial coverage. He will continue doxycycline which will cover Lyme disease as well as MRSA. Stable for [place] home with close outpatient follow-up. Return precautions were discussed. Medical Decision Making Lab Data Result diagrams: 02/16/22 19:52 02/16/22 19:52 Labs: Lab Results 02/16/22 02/16/22 02/16/22 Range/Units 19:52 19:52 19:52 WBC 7.9 (4.8-10.8) X10*3/uL RBC 5.20 (4.60-5.80) X10*6/uL Hgb 16.4 (14.0-18.0) g/dl Hct 48.2 (42.0-52.0) % MCV 92.7 (80.0-98.0) fL MCH 31.5 (27.0-33.0) pg MCHC 34.0 (31.0-36.0) g/dl RDW 13.5 (11.0-16.0) % Plt Count 235 (160-400) X10*3/uL MPV 9.9 (9.4-12.4) fL Immature Gran % (Auto) 0.1 (0.0-0.4) % Neut % (Auto) 53.7 (45-73) % Lymph % (Auto) 37.1 (20-40) % [place] % (Auto) 6.6 (2-11) % Eos % (Auto) 2.0 (0-4) % Baso % (Auto) 0.5 (0-2) % Lymph # (Auto) 2.9 (1.2-4.9) X10*3/uL [place] # (Auto) 0.5 (0.1-1.2) X10*3/uL Eos # (Auto) 0.2 (0.0-0.4) X10*3/uL Baso # (Auto) 0.0 (0.0-0.2) X10*3/uL Abs Immat Gran (auto) 0.01 (0.00-0.03) X10*3/uL Absolute Neuts (auto) 4.3 (2.0-8.3) x10*3/uL Absolute Nucleated RBC 0.000 (0.0-0.012) X10*3/uL Nucleated RBC % (auto) 0.0 (0.0-0.2) /100WBC ESR 2 (0-15) MM/HR Sodium 140 (135-145) mmol/L Potassium 3.8 (3.3-5.1) mmol/L Chloride 105 (96-108) mmol/L Carbon Dioxide 26 (22-29) mmol/L Anion Gap 13 (12-20) BUN 13 (9-16) mg/dL Creatinine 1.10 (0.5-1.4) mg/dL Estim Creat Clear Calc 101.0 Estimated GFR > 60 Random Glucose 98 (60-115) mg/dL Calcium 9.5 (8.4-10.2) mg/dL C-Reactive Protein 0.24 (< or = 0.50) mg/dL Critical Care Time Critical Care Time Critical Care Time: No Discharge Plan Discharge Clinical Impression: Cellulitis Patient Disposition: Home, Self-Care Instructions: Cellulitis (DC) Additional Instructions: Your lab workup today was normal. Recommend continuing the previously prescribed doxycycline, complete the entire course. Start taking the prescribed Augmentin as well. Complete the entire course. Use warm compresses several times a day to the area for the next 48 hours and then you can use ice to help decrease the swelling. If you develop worsening redness, swelling, pain, or develops pain with eye movement, fevers or any other concerning symptoms call your doctor or come back to the ER for further evaluation. Prescriptions: New amoxicillin-pot clavulanate 875-125 mg tablet 1 tab PO BID Qty: 14 0RF No Action doxycycline monohydrate 100 mg capsule 100 mg PO Q12H 14 Days Qty: 28 0RF Interventions: ED Discharge Assessment Last Done: 02/16/22 20:35
[2022-02-16 19:57] LABS: MANUAL DIFF FLAG NO
[2022-02-16 20:01] LABS: Basophils Percent Auto 0.5 % (0-2); Eosinophils Absolute Auto 0.2 X10*3/uL (0.0-0.4); Hematocrit 48.2 % (42.0-52.0); Hemoglobin 16.4 g/dl (14.0-18.0); Imm Gran Abs Auto 0.01 X10*3/uL (0.00-0.03); Imm Gran Pct Auto 0.1 % (0.0-0.4); Lymphocytes Absolute Auto 2.9 X10*3/uL (1.2-4.9); Lymphocytes Percent Auto 37.1 % (20-40); Mean Corpuscular Hemoglobin 31.5 pg (27.0-33.0); Mean Corpuscular Volume 92.7 fL (80.0-98.0); Mean Platelet Volume 9.9 fL (9.4-12.4); Monocytes Absolute Auto 0.5 X10*3/uL (0.1-1.2); Monocytes Percent Auto 6.6 % (2-11); Neutrophils Absolute Auto 4.3 x10*3/uL (2.0-8.3); Neutrophils Percent Auto 53.7 % (45-73); Platelet Count 235 X10*3/uL (160-400); Red Cell Distribution Width 13.5 % (11.0-16.0); White Blood Count 7.9 X10*3/uL (4.8-10.8)
[2022-02-16 20:15] LABS: Anion Gap 13 (12-20); Blood Urea Nitrogen 13 mg/dL (9-16); C Reactive Protein 0.24 mg/dL (< or = 0.50); Calcium 9.5 mg/dL (8.4-10.2); Carbon Dioxide 26 mmol/L (22-29); Chloride 105 mmol/L (96-108); Estimated Glomerular Filt Rate > 60; Glucose Random 98 mg/dL (60-115); Potassium 3.8 mmol/L (3.3-5.1); Sodium 140 mmol/L (135-145)
[2022-02-16 20:54] LABS: Erythrocyte Sedimentation Rate 2 MM/HR (0-15)
== END 2022-02-16 22:48 | disposition home or self-care (01) ==
PROVIDERS: Physician Assistant; Emergency Provider Emergency Medicine Emergency Medical Services
DX: L03.213 Periorbital cellulitis (principal); S00.262D Insect bite (nonvenomous) of left eyelid and periocular area, subsequent encounter; W57.XXXD Bitten or stung by nonvenomous insect and other nonvenomous arthropods, subsequent encounter; F17.200 Nicotine dependence, unspecified, uncomplicated
CPT/HCPCS: 36415; 80048; 85025; 85652; 86140; 99283

== ENCOUNTER 2022-04-01 15:26 | Outpatient (REF) | payer MEDICAID, SELFPAY ==
--- NOTE | ~2022-04-01 | XR_ITS ---
EXAMINATION: XR LUMBOSACRAL SPINE CLINICAL INFORMATION: Low back pain COMPARISON: None TECHNIQUE: Three views of the lumbosacral spine. FINDINGS: There is mild straightening of lumbar lordosis. The vertebral heights and alignment is normal. No visible acute fracture, dislocation or lytic process seen. The paravertebral soft tissues are normal. XR/XR lumbar spine 2-3V IMPRESSION: Unremarkable lumbar spine exam.
== END 2022-04-01 15:27 | disposition home or self-care (01) ==
LOC: HO.XRAY 15:26
PROVIDERS: Absent Provider Internal Medicine; PCP Internal Medicine; Visit Provider Family Medicine
DX: M54.50 Low back pain, unspecified (principal)
CPT/HCPCS: 72100

== ENCOUNTER → 2022-04-04 11:37 | Outpatient (BNVA) | payer MEDICAID, SELFPAY | PROVIDERS: PCP Internal Medicine; Referring Provider Internal Medicine; Visit Provider Surgery | DX: R10.32 Left lower quadrant pain (principal); Z87.19 Personal history of other diseases of the digestive system | CPT/HCPCS: 99212 ==

== ENCOUNTER → 2022-11-10 13:28 | Outpatient (BNVA) | payer MEDICAID, SELFPAY | PROVIDERS: PCP Internal Medicine; Visit Provider Surgery | DX: K40.90 Unilateral inguinal hernia, without obstruction or gangrene, not specified as recurrent (principal) | CPT/HCPCS: 99212 ==

== ENCOUNTER 2022-12-20 08:31 | Day surgery (SDC) | payer MEDICAID, SELFPAY ==
[2022-12-13 11:17] VITALS: BMI 33.9
[2022-12-20 09:29] VITALS: BP 155/96; PULSE 77; RESP 16; TEMP 36.2; O2SAT 95
--- NOTE | 2022-12-20 10:40 | MHC.SHP ---
Pre-Procedural Eval Section A Date of Service: 12/20/22 Section B Chief Complaint: Unilateral inguinal hernia, without obstruction Details of Present Illness: he has had a reducible mass on the left groin, worsening Relevant Family History (Specify if Yes): No Relevant Social History: None Present Medications: see Short Stay Collaborative assessment Medical History: Significant History ( smoker) Allergies: Allergies Allergy/AdvReac Type Severity Reaction Status Date / Time No Known Allergies Allergy Verified 12/13/22 11:00 Review of Systems Sugical H&P ROS: Negative: Constitution, Cardiovascular, Respiratory, Neurological, Psychiatric, Hem-Onc, Allergic/Immunologic, Gastrointestinal, Genitourinary, Musculoskeletal, Integumentary, Endocrine and Eyes/Ears/Nose/Throat Exam Surgical H&P Exam: Normal: HEENT, Normal: Heart, Normal: Lungs, Normal: Extremities, Normal: Abdomen ( left inguinal hernia), Normal: Skin and Normal: Neurological Plan Diagnosis/Plan: Unchanged I have reviewed the history and physical and performed a pertinent physical examination on my patient. No changes have occurred unless specified. Time Spent With Patient Time: Total time managing care of this patient today ____ minutes.
--- NOTE | 2022-12-20 10:57 | P.CONAN_ITS ---
HPI - Anesthesia Eval Consult details Narrative: 37 yr old male smoker , obesity for ing hernia repair with mesh PMFSH Active Problems Active Problems: All Active Problems (Updated 12/13/22 @ 11:01 by Carmen Najera RN) Left inguinal hernia (Acute) Left groin pain (Acute) Right inguinal hernia (Acute) Smoker (Acute) Past Medical History Medical History Left groin pain Left inguinal hernia Right inguinal hernia Smoker Family History Family History Mother Breast cancer Family history of problems with anesthesia: No Surgical History Surgical History (Updated 12/13/22 @ 11:01 by Carmen Najera RN) History of excision of mass History of right inguinal hernia repair History of Problems with Anesthesia: No Social History Social History Are you a primary manager care management to a significant other at home: No Do you presently have visiting nurse or other home services: No Alcohol intake: never Patient Tobacco Use Status: Current everyday Tobacco user Tobacco use type: Cigarette Cigarette Packs Per Day: 0.5 Cigarettes Per Day: 10.0 Years Smoked: 20 Smoked in Last 30 Days: Yes Use of substances other than those prescribed or required for medical reasons: Yes Substance Use Type Other:: smoked Substance Use Frequency: Weekly Have you been hit, kicked, punched, or otherwise hurt by someone within the past year? If so, by whom?: No Are you DNR?: No Advance Directives: No Advance Directives Information Provided: Yes Advance Directives on File: No Recently lost weight without trying: No Eating poorly because of decreased appetite: No Nutrition Risks: No Nutritional Risk Meds Allergies Allergy/AdvReac Type Severity Reaction Status Date / Time No Known Allergies Allergy Verified 12/13/22 11:00 Exam Exam Date and Time: December 20, 2022 1057 Height,Weight and Vital Signs: Height 5 ft 7 in Weight 98.157 kg Last Vital Signs Temp 97.2 F 12/20/22 09:29 Pulse 77 12/20/22 09:29 Resp 16 12/20/22 09:29 BP 155/96 H 12/20/22 09:29 Pulse Ox 95 12/20/22 09:29 O2 Del Method 12/20/22 09:29 Airway Mallampati Class: II TM Dist: >3cm Neck ROM: Full Heart: rrr Lungs: cta Assessment and Plan Assessment Anesthesia Assessment: Anesthesia Plan Discussed Final Anesthetic Review Family History of Problems with Anesthesia: No History of Problems with Anesthesia: No NPO: Yes ASA Class: II Final Preanesthetic Review: No Changes in Pt Med Stat, Meds/Allgs Chart Reviewed and Consent Obtained/Reviewed Patient Risk: Low Procedure Risk: Low Anesthetic Plan Anesthetic Plan: GA Disposition: Standard PACU
--- NOTE | 2022-12-20 11:58 | P.OP_ITS ---
Operative Note Operative Note Date of Service: 12/20/22 Narrative: Preop diagnosis: Left inguinal hernia Postop diagnosis: Left inguinal hernia, indirect Procedure: Repair of left inguinal hernia with mesh Surgeon: Haroldo Abraham MD executive administrative assistant: BRET Brady The patient is a 37-year-old male with a reducible mass the left groin consistent with a left inguinal hernia. He understood technique of repair with mesh. He was aware of the risks, benefits, and alternatives He was brought to the operating room. He was placed supine under general anesthesia via laryngeal mask airway. The left groin was prepped and draped in the usual sterile fashion. A surgical time-out was done. The patient received cefazolin 2 g IV preoperatively I marked my planned line of incision. This was along an imaginary line from the anterior superior iliac spine to the pubic ramus. I infiltrated this area with lidocaine 1%. I made a short incision using blade 15. This was carried down through the full-thickness of the skin and subcutaneous fat to the external oblique aponeurosis. I bluntly dissected the aponeurosis to identify the external ring. I made an incision on the external oblique aponeurosis using blade 15.I extended this infereromedially to connect with the external ring using an open tipped pair of scissors. Hemostats were applied on the divided edges of the aponeurosis. I did blunt dissection under the aponeurosis to create space for the mesh. I then proceeded to bluntly dissect the spermatic cord and its contents using my index finger until was able to pass a [place] drain around this. This [place] drain was used for traction. I identified the vas deferens and the accompanying vessels. These were protected during the dissection. A hernia containing fat was seen and this was gently dissected off of the rest of the cord contents until was able to reduce this to the internal ring. This was therefore an indirect hernia. I reinforced this internal ring with a medium-sized plug. This plug was secured Prolene 2 sutures to the shelv ing edge of the inguinal and laterally and the internal oblique superiorly medially using the inner leaves of the plug. I then reinforced the entire floor of the canal with a keyhole mesh. The tails of the mesh were passed around the cord at the level of the internal ring and were secured together with Prolene 2 sutures. I flattened the mesh on the floor. I secured this to the shelving edge of the inguinal ligament laterally, and the internal oblique superiorly medially, as well as the pubic ramus inferomedially using Prolene 2 sutures. I made sure that no nerves were entrapped in the sutures. Of the [place] drain. I observed for hemostasis. I closed the external oblique neurosis were running Dexon 2-0 stitch to re-create the external ring. Hemostasis was confirmed. Subcutaneous layer was reapposed with Dexon 3-0 interrupted sutures. Skin closure was achieved with Dexon 4-0 subcuticular running stitch. The area was infiltrated with Marcaine 0.5% for postop analgesia. Steri-Strips and dressings were applied. The procedure was completed The patient tolerated procedure well. There were no immediate complications. Initial and final counts of sponges and instruments were correct. Estimated blood loss about less than 10 cc. The patient was extubated without difficulty and transferred to the recovery room with stable vital signs.
[2022-12-20 12:24] VITALS: BP 127/85; PULSE 76; RESP 16; TEMP 36.3; O2SAT 99
[2022-12-20 12:29] VITALS: BP 112/63; PULSE 79; RESP 16; O2SAT 99
[2022-12-20 12:34] VITALS: BP 117/72; PULSE 76; RESP 16; O2SAT 96
[2022-12-20 12:39] VITALS: BP 127/65; PULSE 74; RESP 16; O2SAT 96
[2022-12-20] MEDS: oxyCODONE HCl Immed Release 5 MG TABLET 10 MG PO (12:40)
[2022-12-20 12:54] VITALS: BP 114/60; PULSE 78; RESP 18; TEMP 36.4; O2SAT 96
== END 2022-12-20 13:15 | disposition home or self-care (01) ==
PROVIDERS: PCP Internal Medicine; Visit Provider Surgery
PROC: (CPT 49505; principal; 2022-12-20 10:40)
DX: K40.90 Unilateral inguinal hernia, without obstruction or gangrene, not specified as recurrent (principal); F17.210 Nicotine dependence, cigarettes, uncomplicated
CPT/HCPCS: 49505; C1781; J0131; J0690; J1100; J1885; J2405; J2795; J3010

== ENCOUNTER 2024-11-19 14:09 | Outpatient (REF) | payer MEDICAID, SELFPAY ==
[2024-11-19 17:33] LABS: MANUAL DIFF FLAG NO
[2024-11-19 17:42] LABS: Basophils Percent Auto 0.5 % (0-2); Eosinophils Absolute Auto 0.1 X10*3/uL (0.0-0.4); Eosinophils Percent Auto 0.8 % (0-4); Hematocrit 49.6 % (42.0-52.0); Imm Gran Abs Auto 0.02 X10*3/uL (0.00-0.03); Imm Gran Pct Auto 0.3 % (0.0-0.4); Lymphocytes Percent Auto 39.5 % (20-40); Mean Corpuscular HGB Conc 34.3 g/dl (31.0-36.0); Mean Corpuscular Hemoglobin 31.3 pg (27.0-33.0); Mean Corpuscular Volume 91.2 fL (80.0-98.0); Mean Platelet Volume 10.4 fL (9.4-12.4); Monocytes Absolute Auto 0.4 X10*3/uL (0.1-1.2); Monocytes Percent Auto 5.6 % (2-11); Neutrophils Percent Auto 53.3 % (45-73); Platelet Count 228 X10*3/uL (160-400); Red Blood Count 5.44 X10*6/uL (4.60-5.80); Red Cell Distribution Width 12.9 % (11.0-16.0); White Blood Count 7.5 X10*3/uL (4.8-10.8)
[2024-11-19 18:15] LABS: Alanine Aminotransferase 43 U/L (0-40); Albumin Level 4.6 g/dL (3.5-5.0); Alkaline Phosphatase 63 U/L (39-117); Anion Gap 12 (12-20); Aspartate Amino Transferase 31 U/L (5-37); Bilirubin Total 0.4 mg/dL (0.0-1.0); Blood Urea Nitrogen 15 mg/dL (9-16); Calcium 8.8 mg/dL (8.4-10.2); Carbon Dioxide 25 mmol/L (22-29); Chloride 108 mmol/L (96-108); Estimated Glomerular Filt Rate > 60; Glucose Random 92 mg/dL (60-115); Magnesium 2.6 mg/dL (1.6-2.6); Potassium 3.6 mmol/L (3.3-5.1); Sodium 141 mmol/L (135-145); Total Protein 8.4 g/dL (6.5-8.0)
[2024-11-19 18:33] LABS: TSH reflex Free T4 1.64 uIU/mL (0.32-4.0)
[2024-11-19 18:38] LABS: Folate 6.6 ng/mL (> or = 4.0); Vitamin B12 277 pg/mL (200-900)
[2024-11-24 14:19] LABS: Vitamin B6 6.7 ng/mL (2.1-21.7)
== END 2024-11-19 14:10 | disposition home or self-care (01) ==
LOC: HO.CHCLDS 14:09
PROVIDERS: Visit Provider Internal Medicine
DX: R20.2 Paresthesia of skin (principal)
CPT/HCPCS: 36415; 80053; 82607; 82746; 83735; 84207; 84443; 85025

== ENCOUNTER 2024-12-26 14:04 | Outpatient (REF) | payer MEDICAID, SELFPAY ==
--- NOTE | ~2024-12-26 | XR_ITS ---
CLINICAL HISTORY: NECK PAIN 5 views cervical spine Comparison: None Findings: Normal vertebral body alignment. No acute fractures or dislocation. No significant degenerative change. Prevertebral soft tissues within normal limits. IMPRESSION: No acute findings. This document has been electronically signed by: Carlos Nunez MD on 12/27/2024 11:28:32
--- NOTE | ~2024-12-26 | XR_ITS ---
CLINICAL HISTORY: Chronic low back pain radiating to left lower limb 5 views lumbar spine Comparison: None Findings: Normal vertebral body alignment. No acute fractures or dislocation. No significant degenerative change. IMPRESSION: No acute findings. This document has been electronically signed by: Carlos Nunez MD on 12/27/2024 11:38:43
--- OUTSIDE RECORDS SUMMARY | 2024-12-26 17:07 | XMS_ITS | Encounter Summary ---
Author Organization [employer] Address [address] [place] [address] Care Team Providers Care Monorail Charger Operator Name Role Phone Kasey Reardon MD Primary Care Provider [phone] Reason for Visit * Reason Onset Date Comments Results 12/05/2024 MRI Encounter Details Date Type Department Care Team ([facility] Contact Info) Description 12/05/2024 Telephone [facility] [address], [place] [phone] Kasey Reardon MD [address], [place] [phone] Results (MRI) Social History Tobacco Use Types Packs/Day Years Used Date Smoking Tobacco: Every Day Cigarettes Smokeless Tobacco: Never Alcohol Use Standard Drinks/Week Comments Never 0 (1 standard drink = 0.6 oz pur e alcohol) Depression Answer Date Recorded Patient Health Questionnaire-9 Score 9 11/19/2024 Patient Health Questionnaire-9 Score 9 11/19/2024 Last PHQ-9: Questionnaire Data Not on file 0 11/19/2024 Housing Stability Answer Date Recorded What is your housing situation today? I have tony pastrana 11/19/[address] you li ve. Do you have problems with any of the following? None of the above 11/19/2024 Food Insecurity Answer Date Recorded Within the past 12 months, y ou worried that your food would run out before you got money to buy more: Never True 11/19/2024 Within the past 12 months,th e food you bought just didn't last and you didn't have enough money to get more: Never True Transportation Answer Date Recorded In the past 12 months, has l ack of transportation kept you from medical appts, meetings, work or from getting things needed for daily living? No 11/19/2024 Utilities Answer Date Recorded In the past 12 months, has t he electric, gas, oil or water company threatened to shut off services in your home? No 11/19/2024 Depression Answer Date Recorded Patient Health Questionnaire-2 Score 2 11/19/2024 Internet Access Answer Date Recorded Internet Access Q1 Yes 11/19/2024 Internet Access Q2 Not on file 11/19/2024 Sex and Gender Information Value Date Recorded Sex Assigned at Male 08/29/2022 10:38 AM EDT Legal Sex Male 10:38 AM EDT Gender Identity Male 08/29/2022 10:38 AM EDT Sexual Orientation Straight 08/29/2022 10 :38 AM EDT documented as of this encounter Miscellaneous Notes * Telephone Encounter - Danyell Holley RN - 12/05/2024 2:54 PM EST TC to pt and advised below message. Pt was also given US appt details- Lul, 2.18.25 12:15pm. Pt has no further questions at this time. ----- Message from Kasey Reardon MD sent at 12/05/2024 1:30 PM EST ----- Please call. The MRI of the lumbar spine was reviewed and shows a left paracentral and foraminal disc protrusion at the L4-L5 level contacting the left existing L4 nerve root. It also shows with discprotrusion at L2-L3 level with mild encroachment on the right exiting L3 nerve root. Patient will be referred to pain management for further management. documented in this encounter Plan of Treatment Upcoming Encounters Date Type Department Care Team ([facility] st Contact Info) Description 12/30/2024 10:00 AM EST Office Visit [facility] MED [facility] PEDS [address], [place] [phone] Kasey Reardon MD [address] [place] [address] documented as of this encounter Visit Diagnoses Not on filedocumented in this encounter Additional Health Concerns Assessment Noted Time PHQ-9 Depression Total Score: 9 11/19/19 25 1:25 PM EST documented as of this encounter Care Teams Monorail Charger Operator Relationship Specialty Start Date End Date Kasey Reardon MD [address] [place] [address] PCP - General Internal Medicine 06/15/21 documented as of this encounter
--- OUTSIDE RECORDS SUMMARY | 2024-12-26 17:07 | XMS_ITS | Encounter Summary ---
Author Organization [facility] [employer] Address [address] [facility] 7t [place] [address] Care Team Providers Care International Sales Representative Name Role Phone Kasey Reardon MD Primary Care Provider [phone] Reason for Referral * Consultation (Routine) - Closed Specialty Diagnoses / Procedures Referred By Ashley islas Referred To Contact Pain Medicine Diagnoses Paresthesias Kasey Reardon MD [address] [place] [address] Phone: tel: fax: Rickey Leary MD [address] [place] [address] [address] [place] [address] Phone: tel: fax: Referral ID Status Reason Start Date Expiration Date V isits Requested Visits Authorized [id number] Closed Specialty Services Required 12/05/2024 12/05/2025 1 1 * Imaging (Routine) - Closed Specialty Diagnoses / Procedures Referred By Ashley islas Referred To Contact Radiology Diagnoses Transaminitis Procedures US Abdomen Complete Kasey Reardon MD [address] [place] [address] Phone: tel: fax: [facility] [address] [facility], [address] [place] [address] Phone: tel: fax: Referral ID Status Reason Start Date Expiration Date Visits Re quested Visits Authorized [id number] Closed 11/21/2024 11/21/2025 1 1 Encounter Details Date Type Department Care Team (Late st Contact Info) Description 11/21/2024 Orders Only [facility] [address] [place] [address] Kasey Reardon MD [address] [place] [address] Transaminitis (Primary Dx); Paresthesias Social History Tobacco Use Types Packs/Day Years [...] AM EDT documented as of this encounter Plan of Treatment Upcoming Encounters Date Type Department Care Team (Late st Contact Info) Description 12/30/2024 10:00 AM EST Office Visit [facility] MED & PEDS [address] [place] [address] Kasey Reardon MD [address] [place] [address] Pending Results Name Type Priority Associated Diagnoses Date /Time Referral to Pain Medicine Outpatient Referral Routine Paresthesias 12/19/2024 Scheduled Orders Name Type Priority Associated Diagnoses Orde r Schedule US Abdomen Complete Imaging Routine Transaminitis Expected: 11/21/2024, Expires: 11/21/2025 Hepatitis A,B,C Profile Lab Routine Transaminitis Expected: 11/21/2024, Expires: 11/21/2025 Scheduled Referrals Name Type Priority Associated Diagnoses Orde r Schedule Referral to Pain Medicine Outpatient Referral Routine Paresthesias Expected: 12/05/2024 (Approximate), Expires: 12/05/2025 documented as of this encounter Visit Diagnoses Diagnosis Transaminitis- Primary Nonspecific elevation of levels of transaminase or lactic acid dehydrogenase (LDH) Paresthesias Disturbance of skin sensation documented in this encounter Additional Health Concerns Assessment Noted Time PHQ-9 Depression Total Score: 9 11/19/19 25 1:25 PM EST documented as of this encounter Care Teams International Sales Representative Relationship Specialty Start Date End Date Kasey Reardon MD [address] [place] [address] PCP - General Internal Medicine 06/15/21 documented as of this encounter
--- OUTSIDE RECORDS SUMMARY | 2024-12-26 17:07 | XMS_ITS | Clinical Summary ---
Author Organization [employer] Address [address] [facility] 7[address] [place] [address] Care Team Providers Care Third Hand Name Role Phone Kasey Reardon MD Primary Care Provider [phone] Allergies No known active allergies Medications * This document contains information received from the source organization and may not represent a complete record from that organization. sodium chloride ([place] Nasal [place]) 0.65 % nasal spray Administer 1 spray into each nostril if needed for congestion. 30 mL 01/27/20 24 025 Active fluticasone (Flonase) 50 MCG/ACT nasal spray Administer 1 spray into each nostril in the morning. 16 g 2 01/27/20 24 Active cetirizine (ZyrTEC) 10 MG tablet TAKE 1 TABLET BY MOUTH IN THE MORNING. 90 tablet 09/16/20 24 Active methocarbamol (Robaxin) 750 MG tabletIndicati ons:Neck pain Take 1 tablet (750 mg) by mouth 4 times daily for 10 days. 40 tablet 11/19/19 25 Active methocarbamol (Robaxin) 750 MG tabletIndicati ons:Chronic bilateral low back pain with left-sided sciatica,Neck pain Take 1 tablet (750 mg) by mouth 4 times daily for 10 days. 40 tablet 11/19/19 25 Active b complex vitamins capsuleIndicat ions:Paresthes ias Take 1 capsule by mouth Once per day. 30 capsule 11 11/21/19 25 026 Active paliperidone (Invega) 3 MG 24 hr tabletIndicati ons:Schizoaffe ctive disorder, bipolar type (CMS/HCC) Take 1 tablet (3 mg) by mouth at bedtime. Do not crush, chew, or split. 30 tablet 1 12/26/19 25 025 Active hydrOXYzine pamoate (Vistaril) 50 MG capsuleIndicat ions:Primary insomnia Take 1 capsule (50 mg) by mouth if needed at bedtime for anxiety. 1 to 2 tabs at bedtime 30 capsule 1 12/26/19 25 025 Active hydrOXYzine pamoate (Vistaril) 50 MG capsuleIndicat ions:Primary insomnia Take 1 capsule (50 mg) by mouth if needed at bedtime for itching. 1 to 2 tabs at bedtime 60 capsule 3 11/19/19 25 025 Discontinued(Re order (will not trigger notification to Pharmacy)) Active Problems Problem Noted Date Diagnosed Date Schizoaffective disorder, bipolar type 5 Subacute sinusitis 01/27/2024 Assessment & Plan (01/28/2024 11:20 PM EDT): Rx z-pack x 5d Rest (sleep at least 8 hours a night). Hydrate with plenty of water (avoid caffeine and alcohol). Use saline nose drops to loosen mucus Take Acetaminophen (Tylenol??)/Ibuprofen as needed to reduce fever, headache, body aches or discomfort Gargle with salt water and use throat sprays/lozenges for throat pain. Use heated, humidified air. If you do not have a humidifier, take hot showers. Cover coughs and sneezes using the crook of your elbow. If you have a fever, stay home and away from others (self isolation) until fever-free for 72 hours (temperature should be less than 100??F without medication). Out of work until 01/29/24, can be back on 01/29 if afebrile x 24h. Encounters * This document contains information received from the source organization and may not represent a complete record from that organization. Date Type Department Care Team Description 12/09/2024 Telephone [facility] MEDICINE [address] [place] [address] Lizbeth Marshall RN Imaging Orders (No Show US Abdomen ) 12/05/2024 Telephone [facility]S [address] [place] [address] Kasey Reardon MD Results (MRI) 11/21/2024 Telephone [facility] PEDIATRICS [address] [place] [address] Kasey Reardon MD Results 11/21/2024 Orders Only [facility] & PEDS [address] [place] [address] Kasey Reardon MD Transaminitis (Primary Dx); Paresthesias 11/19/2024 1:30 PM EST Office Visit [facility] P[facility] [address] [place] [address] Kasey Reardon MD Chronic bilateral low back pain with left-sided sciatica (Primary Dx); Neck pain; Primary hypertension; Primary insomnia; Paresthesias; Anxiety 11/19/2024 Travel from Last 3 Months Social History Tobacco Use Types Packs/Day Years Used Date Smoking Tobacco: Every Day Cigarettes Smokeless Tobacco: Never Tobacco Cessation:Ready to Q uit: No; Counseling Given: Yes Alcohol Use Standard Drinks/Week Comments Never 0 [...] Orientation Straight 08/29/2022 10 :38 AM EDT Last Filed Vital Signs Vital Sign Reading Time Taken Comments Blood Pressure 156/98 11/19/2024 1:24 PM EST Pulse 86 11/19/2024 1:24 PM EST Temperature 36.2 ??C (97.2 ??F) 11/19/2024 1:24 PM ES T Respiratory Rate 20 11/19/2024 1:24 PM EST Oxygen Saturation 98% 11/19/2024 1:24 PM EST Inhaled Oxygen Concentration - - Weight 95.4 kg (210 lb 6.4 oz) 11/19/2024 1:24 P M EST Height 169 cm (5' 6.54 ) 11/19/2024 1:24 PM EST Body Mass Index 33.42 11/19/2024 1:24 PM EST Plan of Treatment Upcoming Encounters Date Type Department Care Team (Late st Contact Info) Description 12/30/2024 10:00 AM EST Office Visit [facility] P[facility] [address] [place] [address] Kasey Reardon MD [address] [place] [address] Health Maintenance Due Date Last Done Comments HIV Screening 1984 Lipid Panel 1984 Family Planning (PISQ) 01/12/1999 Hepatitis C Screening 01/12/2002 Hepatitis B Vaccines (1 of 3 - 19+ 3-dose series) 01/12/2003 Pneumococcal Vaccine: Pediatrics (0 to 5 Years) and At-Risk Patients (6 to 49) Years) (1 of 2 - PCV) 01/12/2003 COVID-19 Vaccine (2 - 2023-2 5 season) 2024 05/17/2021 Influenza Vaccine (#1) 2024 Depression Monitoring (PHQ-9) 05/19/2025, 11/19/2024 Alcohol/Substance Use Screening 11/19/2025 11/19/2024 Depression Screening 11/19/2025 11/19/2024, 11/19/2024 SDOH Screening 11/19/2025 11/19/2024 Tobacco Screening 12/26/2025 12/26/2024 DTaP/Tdap/Td Vaccines (3 - T d or Tdap) 02/13/2032 02/12/2022, 01/04/2019 Zoster Vaccines (1 of 2) 01/12/2034 RSV Patients and Patients Aged 60 years or older (1 - 1-dose 75+ series) 01/12/2059 HIB Vaccines Aged Out No longer eligi ble based on patient's age to complete this topic HPV Vaccines Aged Out No longer eligi ble based on patient's age to complete this topic Hepatitis A Vaccines Aged Out No long er eligible based on patient's age to complete this topic IPV Vaccines Aged Out No longer eligi ble based on patient's age to complete this topic Meningococcal Vaccine Aged Out No viktoria courtney eligible based on patient's age to complete this topic RSV under 20 months Aged Out No longe r eligible based on patient's age to complete this topic Rotavirus Vaccines Aged Out No longer eligible based on patient's age to complete this topic Procedures Procedure Name Priority Date/Time Associated Diagnosis Comments MR LUMBAR SPINE WO CONTRAST Routine 12/03/2024 Chronic bilateral low back pain with left-sided sciatica VITAMIN B12/FOLATE, SERUM PANEL Routine 11/19/2024 4:13 PM EST Paresthesias VITAMIN B6 Routine 11/19/2024 4:13 PM EST Paresthesias CBC WITH AUTO DIFFERENTIAL Routine 11/19/2024 4:13 PM EST Paresthesias TSH W/REFLEX TO FT4 Routine 11/19/2024 2 :11 PM EST Paresthesias MAGNESIUM Routine 11/19/2024 2:11 PM EST Paresthesias COMPREHENSIVE METABOLIC PANEL Routine 11/19/2024 2:11 PM EST Paresthesias from Last 3 Months Results * MR Lumbar Spine w/o Contrast (12/03/2024) Anatomical Region Laterality Modality Spine, L-spine Magnetic Resonan ce us Kasey Reardon MD IMG MRI PROCEDURES Final Re sult * Vitamin B12/Folate, Serum Panel (11/19/2024 4:13 PM EST) Vitamin B12 277 200 - 900 pg/mL [facility] Comment:NORMAL 200-900 PG/ML INDETERMINATE 160-199 PG/ML DEFICIENT < 160 PG/ML Folate 6.6 > or = 4.0 ng/mL [facility] Comment:Reference Values:> o r = 4.0 ng/mL< 4.0 ng/mL suggests folate deficiency Methotrexate, aminopterin and folinic acid(leucovorin) are chemotherapeutic agents whose molecularstructures are similar to folate; therefore, the Architectfolate assay cannot be used for patients using these drugs. Blood Venous blood specimen / Unknown 11/19/2024 4:13 PM EST 11/19/2024 5:31 PM EST us Kasey Reardon MD LAB BLOOD ORDERABLES Final Result [facility] [address] [place] [phone] * CBC auto differential (11/19/2024 4:13 PM EST) White Blood Count 7.5 4.8 - 10.8 X10*3/uL [facility] Red Blood Count 5.44 4.60 - 5.80 X10*6/uL [facility] Hemoglobin 17.0 14.0 - 18.0 g/dl [facility] Hematocrit 49.6 42.0 - 52.0 % [facility] Mean Corpuscular Volume 91.2 80.0 - 98.0 fL [facility] Mean Corpuscular Hemoglobin 31.3 27.0 - 33.0 pg [facility] Mean Corpuscular HGB Conc 34.3 31.0 - 36.0 g/dl [facility] Red Cell Distribution Width 12.9 11.0 - 16.0 % [facility] Platelet Count 228 160 - 400 X10*3/uL [facility] Mean Platelet Volume 10.4 9.4 - 12.4 fL [facility] Neutrophils Percent Auto 53.3 45 - 73 % [facility] Imm Gran Pct Auto 0.3 0.0 - 0.4 % [facility] Lymphocytes Percent Auto 39.5 20 - 40 % [facility] Monocytes Percent Auto 5.6 2 - 11 % [facility] Eosinophils Percent Auto 0.8 0 - 4 % [facility] Basophils Percent Auto 0.5 0 - 2 % [facility] NRBC Pct Auto 0.0 0.0 - 0.2 /100WBC [facility] Neutrophils Absolute Auto 4.0 2.0 - 8.3 x10*3/uL [facility] Imm Gran Abs Auto 0.02 0.00 - 0.03 X10*3/uL [facility] Lymphocytes Absolute Auto 3.0 1.2 - 4.9 X10*3/uL [facility] Monocytes Absolute Auto 0.4 0.1 - 1.2 X10*3/uL [facility] Eosinophils Absolute Auto 0.1 0.0 - 0.4 X10*3/uL [facility] Basophils Absolute Auto 0.0 0.0 - 0.2 X10*3/uL [facility] NRBC Abs Auto 0.000 0.0 - 0.012 X10*3/uL [facility] Blood Venous blood specimen / Unknown 11/19/2024 4:13 PM EST 11/19/2024 5:31 PM EST us Kasey Reardon MD LAB BLOOD ORDERABLES Final Result [facility] [address] [place] [address] [phone] * Vitamin B6 (11/19/2024 4:13 PM EST) Pathologist [facility] Vitamin B6 6.7 2.1 - 21.7 ng/mL [facility] Comment:Vitamin supplementat ion within 24 hours prior toblood draw may affect the accuracy of the results.This test was developed and its analytical performancecharacteristics have been determined by [employer] [place], [place]. It hasnot been cleared or approved by the U.S. Food and DrugAdministration. This assay has been validated pursuantto the CLIA regulations and is used for clinicalpurposes.THIS TEST WAS PERFORMED AT:[email or web address] [place] [email or web address]. MASON,MD,PHD Blood Venous blood specimen / Unknown 11/19/2024 4:13 PM EST 11/19/2024 5:31 PM EST us Kasey Reardon MD LAB BLOOD ORDERABLES Final Result Performing Organization Address City/[facility]/ZIP Co de Phone Number [facility] [address] [place] [phone] * TSH W/Reflex to FT4 (11/19/2024 2:11 PM EST) Pathologist [facility] TSH reflex Free T4 1.64 0.32 - 4.0 uIU/mL [facility] Blood Venous blood specimen / Unknown 11/19/2024 2:11 PM EST 11/19/2024 5:31 PM EST us Kasey Reardon MD LAB BLOOD ORDERABLES Final Result [facility] [address] [place] [phone] * Magnesium (11/19/2024 2:11 PM EST) Magnesium 2.6 1.6 - 2.6 mg/dL [facility] Blood Venous blood specimen / Unknown 11/19/2024 2:11 PM EST 11/19/2024 5:31 PM EST Kasey Reardon MD LAB BLOOD ORDERABLES Final Result [facility] [address] [place] [phone] * (ABNORMAL) Comprehensive Metabolic Panel (11/19/2024 2:11 PM EST) Sodium 141 135 - 145 mmol/L [facility] Potassium 3.6 3.3 - 5.1 mmol/L [facility] Comment:Slight Hemolysis.Int erpret result with caution. Chloride 108 96 - 108 mmol/L [facility] Carbon Dioxide 25 22 - 29 mmol/L [facility] Anion Gap 12 12 - 20 [facility] Urea Nitrogen (BUN) 15 9 - 16 mg/dL [facility] Creatinine, Serum 0.99 0.5 - 1.4 mg/dL [facility] Estimated Glomerular Filt Rate >60 [facility] Comment:Chronic Kidney Disea se: Estimated GFR < 60 mL/min/[id number] Kidney Disease: Estimated GFR < 15 mL/min/1.73m2 Glucose 92 60 - 115 mg/dL [facility] Calcium 8.8 8.4 - 10.2 mg/dL [facility] Bilirubin, Total 0.4 0.0 - 1.0 mg/dL [facility] Aspartate Amino Transferase 31 5 - 37 U/L [facility] Comment:Slight Hemolysis.Int erpret result with caution. Alanine Aminotransferase 43(H) 0 - 40 U/L [facility] Total Protein 8.4(H) 6.5 - 8.0 g/dL [facility] Albumin Level 4.6 3.5 - 5.0 g/dL [facility] Alkaline Phosphatase 63 39 - 117 U/L [facility] Blood Venous blood specimen / Unknown 11/19/2024 2:11 PM EST 11/19/2024 5:31 PM EST Kasey Reardon MD LAB BLOOD ORDERABLES Final Result [facility] [address] [place] [phone] from Last 3 Months Insurance * Guarantor: Attila Stanford Account Type Relation to Patient Date of Phone Billing Address Personal/Family Self [address] Care Teams Third Hand Relationship Specialty Start Date End Date Kasey Reardon MD [address] [facility] [place] [address] PCP - General Internal Medicine 06/15/21
--- OUTSIDE RECORDS SUMMARY | 2024-12-26 17:07 | XMS_ITS | Encounter Summary ---
Author Organization [employer] Address [address] [place] [address] Care Team Providers Care Mixer Helper Name Role Phone Kasey Reardon MD Primary Care Provider [phone] Reason for Visit * Reason Onset Date Comments Imaging Orders 12/09/2024 No Show US Abdom en Encounter Details Date Type Department Care Team ([facility] st Contact Info) Description 12/09/2024 Telephone [facility] MEDICINE [address] [place], [place] [phone] Lizbeth Marshall RN [address] [place], [place] [phone] Imaging Orders (No Show US Abdomen ) Social History Tobacco Use Types Packs/Day Years [...] encounter Miscellaneous Notes * Telephone Encounter - Lizbeth Marshall RN - 12/09/2024 9:48 AM EST Received message from [facility] the patient no showed for their Abdomen US scheduled on 12/07/24. Message sent to Diagnostic PA Specialist and PCP. documented in this encounter Plan of Treatment Upcoming Encounters Date Type Department Care Team (Late st Contact Info) Description 12/30/2024 10:00 AM EST Office Visit [facility] MED & PEDS [address] [place] [address] Kasey Reardon MD [address] [place] [address] documented as of this encounter Visit Diagnoses Not on filedocumented in this encounter Additional Health Concerns Assessment Noted Time PHQ-9 Depression Total Score: 9 11/19/19 25 1:25 PM EST documented as of this encounter Care Teams Mixer Helper Relationship Specialty Start Date End Date Kasey Reardon MD [address] [place] [address] PCP - General Internal Medicine 06/15/21 documented as of this encounter
== END 2024-12-26 14:05 | disposition home or self-care (01) ==
LOC: HO.XRAY 14:04
PROVIDERS: PCP Internal Medicine; Visit Provider Internal Medicine
DX: M54.42 Lumbago with sciatica, left side (principal); G89.29 Other chronic pain; M54.2 Cervicalgia
CPT/HCPCS: 72040; 72110

== ENCOUNTER → 2024-12-26 14:11 | Outpatient (BNV) | payer MEDICAID, SELFPAY | PROVIDERS: PCP Internal Medicine; Visit Provider Radiology Vascular & Interventional Radiology | DX: M54.42 Lumbago with sciatica, left side (principal); M54.2 Cervicalgia | CPT/HCPCS: 72040; 72110 ==

== ENCOUNTER 2025-01-01 13:50 | Outpatient (REF) | payer MEDICAID, SELFPAY ==
--- NOTE | ~2025-01-01 | XR_ITS ---
CLINICAL HISTORY: right shoulder pain 4 view right shoulder Comparison: None Findings: Bones intact. No dislocations. Mild acromioclavicular osteoarthritis. No erosions. No radiopaque foreign body. IMPRESSION: 1. No acute findings This document has been electronically signed by: Akhil Torrez MD on 01/01/2025 19:40:11
--- OUTSIDE RECORDS SUMMARY | 2025-01-01 16:32 | XMS_ITS | Clinical Summary ---
Author Organization [employer] Address [address] [facility] 7t [place] [address] Care Team Providers Care Share Holder Name Role Phone Kasey Reardon MD Primary Care Provider [phone]- [phone] Allergies No known active allergies Medications * This document contains information received from the source organization and may not represent a complete record from that organization. sodium chloride (Nobles Nasal Mosinee) 0.65 % nasal spray Administer 1 spray into each nostril if needed for congestion. 30 mL 01/27/20 24 025 Active fluticasone (Flonase) 50 MCG/ACT nasal spray Administer 1 spray into each nostril in the morning. 16 g 2 01/27/20 24 Active cetirizine (ZyrTEC) 10 MG tablet TAKE 1 TABLET BY MOUTH IN THE MORNING. 90 tablet 09/16/20 24 Active b complex vitamins capsuleIndicat ions:Paresthes ias [...] 30 capsule 1 12/26/19 25 025 Active tiZANidine (Zanaflex) 4 MG tabletIndicati ons:Chronic bilateral low back pain with left-sided sciatica Take 1 tablet (4 mg) by mouth every 6 (six) hours if needed for muscle spasms for up to 10 days. 30 tablet 12/31/19 25 025 Active methocarbamol (Robaxin) 750 MG tabletIndicati ons:Neck pain Take 1 tablet (750 mg) by mouth 4 times daily for 10 days. 40 tablet 11/19/19 25 025 Discontinued(Si de effects) hydrOXYzine pamoate (Vistaril) 50 MG capsuleIndicat ions:Primary insomnia Take 1 capsule (50 mg) by mouth if needed at bedtime for itching. 1 to 2 tabs at bedtime 60 capsule 3 11/19/19 25 025 Discontinued(Re order (will not trigger notification to Pharmacy)) methocarbamol (Robaxin) 750 MG tabletIndicati ons:Chronic bilateral low back pain with left-sided sciatica,Neck pain Take 1 tablet (750 mg) by mouth 4 times daily for 10 days. 40 tablet 11/19/19 25 025 Discontinued(Si de effects) Active Problems Problem Noted Date Diagnosed Date [...] organization. Date Type Department Care Team Description 12/30/2024 10:00 AM EST Office Visit [facility] [address] [place] [address] Kasey Reardon MD Chronic bilateral low back pain with left-sided sciatica (Primary Dx); Primary hypertension; Chronic right shoulder pain 12/30/2024 Travel 12/27/2024 Telephone [facility] [address] [place] [address] Kasey Reardon MD chart prep 12/26/2024 Orders Only [facility] [address] [place] [address] Kasey Reardon MD 12/09/2024 Telephone [facility] [address] [place] [address] [phone] Lizbeth Marshall RN Imaging Orders (No Show US Abdomen ) 12/05/2024 Telephone [facility] [address] [place] [address] Kasey Reardon MD Results (MRI) 11/21/2024 Telephone [facility] P[facility] [address] [place] [address] Kasey Reardon MD Results 11/21/2024 Orders Only [facility] [address] [place] [address] Kasey Reardon MD Transaminitis (Primary Dx); Paresthesias 11/19/2024 1:30 PM EST Office Visit [facility] [address] [place] [address] Kasey Reardon MD Chronic bilateral low back [...] Sign Reading Time Taken Comments Blood Pressure 136/88 12/30/2024 9:51 AM EST Pulse 72 12/30/2024 9:51 AM EST Temperature 36.8 ??C (98.2 ??F) 12/30/2024 9:51 AM ES T Respiratory Rate 20 12/30/2024 9:51 AM EST Oxygen Saturation 98% 12/30/2024 9:51 AM EST Inhaled Oxygen Concentration - - Weight 97.4 kg (214 lb 12.8 oz) 12/30/2024 9:51 AM EST Height 171 cm (5' 7.32 ) 12/30/2024 9:51 AM EST Body Mass Index 33.32 12/30/2024 9:51 AM EST Plan of Treatment Health Maintenance Due Date Last Done Comments [...] 11/19/2024 SDOH Screening 11/19/2025 11/19/2024 Tobacco Screening 12/30/2025 12/30/2024 DTaP/Tdap/Td Vaccines (3 - T d or [...] Procedure Name Priority Date/Time Associated Diagnosis Comments XR LUMBAR SPINE COMPLETE 4+ VIEWS Routine 12/27/2024 11:38 AM EST Chronic bilateral low back pain with left-sided sciatica XR CERVICAL SPINE 3V Routine 12/27/2024 11:28 AM EST MR LUMBAR SPINE WO CONTRAST Routine 12/03/2024 [...] Paresthesias from Last 3 Months Results * XR Lumbar Spine Complete 4+ Views (12/27/2024 11:38 AM EST) Anatomical Region Laterality Modality Spine, L-spine Radiographic Antonina ging 12/27/2024 11:3 8 AM EST Narrative 12/27/2024 11:40 AM EST ? [facility] ?[address] ?[place] [address] ?XRay Report ? Signed ? Patient: Attila Stanford ?MR#: MM ?? [id number] ? : 1985 ?Acct:[id number] ? Age/Sex: 39 / M ?ADM Date: 02/27/25 ? Loc: HO.XRAY ? Attending Dr: Kasey Reardon MD ? Ordering Physician: Kasey Reardon MD ?? Date of Service: 12/26/24 ?? Procedure(s): XR lumbar spine 4V min ?? Accession Number(s): [id number] ? cc: Kasey Reardon MD ? CLINICAL HISTORY: Chronic low back pain radiating to left lower limb ? 5 views lumbar spine ? Comparison: None ? Findings: ?? Normal vertebral body alignment. ?? No acute fractures or dislocation. ?? No significant degenerative change. ? IMPRESSION: ?? No acute findings. ? This document has been electronically signed by: Carlos Nunez MD on ?? 12/27/2024 11:38:43 ? Dictated By: ?Carlos Nunez MD ? Signed By: ?<Electronically signed by Carlos Nunez MD in OV> ? 12/27/24 1139 ? DD/ 1138 ? TD/TT: 12/27/24 1138 ? [employer] Materials Buyer: ? Procedure Note D[place], Image - 12/27/2024 [place] [address] XRay Report Signed Patient: Attila Stanford JMR#: [id number] : 1985Acct:[id number] Age/Sex: 39 / MADM Date: 12/26/24 Loc: HO.[facility] Attending Dr: Kasey Reardon MD Ordering Physician: Kasey Reardon MD Date of Service: 12/26/24 Procedure(s): XR lumbar spine 4V min Accession Number(s): [id number] cc: Kasey Reardon MD CLINICAL HISTORY: Chronic low back pain radiating to left lower limb 5 views lumbar spine Comparison: None Findings: Normal vertebral body alignment. No acute fractures or dislocation. No significant degenerative change. IMPRESSION: No acute findings. This document has been electronically signed by: Carlos Nunez MD on 12/27/2024 11:38:43 Dictated By: Carlos Nunez MD Signed By: <Electronically signed by Carlos Nunez MD in OV> 12/27/24 1139 DD/ TD/TT: 12/27/241137 [employer] Buyer: us Kasey Reardon MD IMG XR PROCEDURES Final Res ult * XR CERVICAL SPINE 3V (12/27/2024 11:28 AM EST) Anatomical Region Laterality Modality Abdomen Radiographic Antonina ging 12/27/2024 11:2 8 AM EST Narrative 12/27/2024 11:29 AM EST ? [facility] ?[address] ?[place] [address] ?XRay Report ? Signed ? Patient: Attila Stanford ?MR#: MM ?? [id number] ? : 1985 ?Acct:[id number] ? Age/Sex: 39 / M ?ADM Date: 12/26/24 ? Loc: HO.XRAY ? Attending Dr: Kasey Reardon MD ? Ordering Physician: Kasey Reardon MD ?? Date of Service: 12/26/24 ?? Procedure(s): XR cervical spine 3V ?? Accession Number(s): [id number] ? cc: Kasey Reardon MD ? CLINICAL HISTORY: NECK PAIN ? 5 views cervical spine ? Comparison: None ? Findings: ?? Normal vertebral body alignment. ?? No acute fractures or dislocation. ?? No significant degenerative change. ?? Prevertebral soft tissues within normal limits. ? IMPRESSION: ?? No acute findings. ? This document has been electronically signed by: Carlos Nunez MD on ?? 12/27/2024 11:28:32 ? Dictated By: ?Carlos Nunez MD ? Signed By: ?<Electronically signed by Carlos Nunez MD in OV> ? 12/27/24 1129 ? DD/ 1128 ? TD/TT: 12/27/248 ? [employer] Buyer: ? Procedure Note Mary Dorman - 12/27/[address] [address] XRay Report Signed Patient: Attila Stanford JMR#: [id number] : 1985Acct:[id number] Age/Sex: 39 / MADM Date: 12/26/24 Loc: [place] Attending Dr: Kasey Reardon MD Ordering Physician: Kasey Reardon MD Date of Service: 12/26/24 Procedure(s): XR cervical spine 3V Accession Number(s): [id number] cc: Kasey Reardon MD CLINICAL HISTORY: NECK PAIN 5 views cervical spine Comparison: None Findings: Normal vertebral body alignment. No acute fractures or dislocation. No significant degenerative change. Prevertebral soft tissues within normal limits. IMPRESSION: No acute findings. This document has been electronically signed by: Carlos Nunez MD on 12/27/2024 11:28:32 Dictated By: Carlos Nunez MD Signed By: <Electronically signed by Carlos Nunez MD in OV> 12/27/24 1129 DD/ 1128 TD/TT: 12/27/24 1128 [employer] Buyer: us Kasey Reardon MD IMG XR PROCEDURES Final Res ult * MR Lumbar Spine w/o Contrast (12/03/2024) Anatomical Region Laterality Modality Spine, L-spine Magnetic Resonan ce us Kasey Reardon MD IMG MRI PROCEDURES Final Re sult * Vitamin B12/Folate, Serum Panel (11/19/2024 4:13 PM EST) Vitamin B12 277 200 - 900 pg/mL [facility] Comment:NORMAL 200-900 PG/ML INDETERMINATE 160-199 PG/ML DEFICIENT < 160 PG/ML Folate 6.6 > or = 4.0 ng/mL [facility] Comment:Reference Values:> o r = 4.0 ng/mL< 4.0 ng/mL suggests folate deficiency Methotrexate, aminopterin and folinic acid(leucovorin) are chemotherapeutic agents whose molecularstructures are similar to folate; therefore, the Architectfolate assay cannot be used for patients using these drugs. Blood Venous blood specimen / Unknown 11/19/2024 4:13 PM EST 11/19/2024 5:31 PM EST us Kasey Reardon MD LAB BLOOD ORDERABLES Final Result [facility] [address] [place] [phone] * CBC auto differential (11/19/2024 4:13 PM EST) White Blood Count 7.5 4.8 - 10.8 X10*3/uL [facility] Red Blood Count 5.44 4.60 - 5.80 X10*6/uL [facility] Hemoglobin 17.0 14.0 - 18.0 g/dl [facility] Hematocrit 49.6 42.0 - 52.0 % [facility] Mean Corpuscular Volume 91.2 80.0 - 98.0 fL [facility] Mean Corpuscular Hemoglobin 31.3 27.0 - 33.0 pg [facility] Mean Corpuscular HGB Conc 34.3 31.0 - 36.0 g/dl [facility] Red Cell Distribution Width 12.9 11.0 - 16.0 % [facility] Platelet Count 228 160 - 400 X10*3/uL [facility] Mean Platelet Volume 10.4 9.4 - 12.4 fL [facility] Neutrophils Percent Auto 53.3 45 - 73 % [facility] Imm Gran Pct Auto 0.3 0.0 - 0.4 % [facility] Lymphocytes Percent Auto 39.5 20 - 40 % [facility] Monocytes Percent Auto 5.6 2 - 11 % [facility] Eosinophils Percent Auto 0.8 0 - 4 % [facility] Basophils Percent Auto 0.5 0 - 2 % [facility] NRBC Pct Auto 0.0 0.0 - 0.2 /100WBC [facility] Neutrophils Absolute Auto 4.0 2.0 - 8.3 x10*3/uL [facility] Imm Gran Abs Auto 0.02 0.00 - 0.03 X10*3/uL [facility] Lymphocytes Absolute Auto 3.0 1.2 - 4.9 X10*3/uL [facility] Monocytes Absolute Auto 0.4 0.1 - 1.2 X10*3/uL [facility] Eosinophils Absolute Auto 0.1 0.0 - 0.4 X10*3/uL [facility] Basophils Absolute Auto 0.0 0.0 - 0.2 X10*3/uL [facility] NRBC Abs Auto 0.000 0.0 - 0.012 X10*3/uL [facility] Blood Venous blood specimen / Unknown 11/19/2024 4:13 PM EST 11/19/2024 5:31 PM EST Kasey Reardon MD LAB BLOOD ORDERABLES Final Result Performing Organization Address [facility] Co de Phone Number [facility] [address] [place] [phone] * Vitamin B6 (11/19/2024 4:13 PM EST) [facility] Vitamin B6 6.7 2.1 - 21.7 ng/mL [facility] Comment:Vitamin supplementat ion within 24 hours prior toblood draw may affect the accuracy of the results.This test was developed and its analytical performancecharacteristics have been determined by [employer] [place], [place]. It hasnot been cleared or approved by the U.S. Food and DrugAdministration. This assay has been validated pursuantto the CLIA regulations and is used for clinicalpurposes.THIS TEST WAS PERFORMED AT:[employer]/[facility] [place] [address]LMTOCRT W. MASON,MD,PHD Blood Venous blood specimen / Unknown 11/19/2024 4:13 PM EST 11/19/2024 5:31 PM EST us Kasey Reardon MD LAB BLOOD ORDERABLES Final Result Performing Organization Address [facility] Co de Phone Number [facility] [address] [place] [phone] * TSH W/Reflex to FT4 (11/19/2024 2:11 PM EST) Pathologist [facility] TSH reflex Free T4 1.64 0.32 - 4.0 uIU/mL [facility] Blood Venous blood specimen / Unknown 11/19/2024 2:11 PM EST 11/19/2024 5:31 PM EST Kasey Reardon MD LAB BLOOD ORDERABLES Final Result Performing Organization Address [facility] de Phone Number [facility] [address] [place] [phone] * Magnesium (11/19/2024 2:11 PM EST) Magnesium 2.6 1.6 - 2.6 mg/dL [facility] Blood Venous blood specimen / Unknown 11/19/2024 2:11 PM EST 11/19/2024 5:31 PM EST Kasey Reardon MD LAB BLOOD ORDERABLES Final Result Performing Organization Address [facility] Phone Number [facility] [address] [place] [phone] * (ABNORMAL) Comprehensive Metabolic Panel (11/19/2024 2:11 PM EST) Sodium 141 135 - 145 mmol/L [facility] Potassium 3.6 3.3 - 5.1 mmol/L [facility] Comment:Slight Hemolysis.Int erpret result with caution. Chloride 108 96 - 108 mmol/L [facility] Carbon Dioxide 25 22 - 29 mmol/L [facility] Anion Gap 12 12 - 20 [facility] Urea Nitrogen (BUN) 15 9 - 16 mg/dL [facility] Creatinine, Serum 0.99 0.5 - 1.4 mg/dL [facility] Estimated Glomerular Filt Rate >60 [facility] Comment:Chronic Kidney Disea se: Estimated GFR < 60 mL/min/1.17u5Tssamk Kidney Disease: Estimated GFR < 15 mL/min/1.73m2 Glucose 92 60 - 115 mg/dL [facility] Calcium 8.8 8.4 - 10.2 mg/dL [facility] Bilirubin, Total 0.4 0.0 - 1.0 mg/dL [facility] Aspartate Amino Transferase 31 5 - 37 U/L [facility] Comment:Slight Hemolysis.Int erpret result with caution. Alanine Aminotransferase 43(H) 0 - 40 U/L [facility] Total Protein 8.4(H) 6.5 - 8.0 g/dL [facility] Albumin Level 4.6 3.5 - 5.0 g/dL [facility] Alkaline Phosphatase 63 39 - 117 U/L [facility] Blood Venous blood specimen / Unknown 11/19/2024 2:11 PM EST 11/19/2024 5:31 PM EST us Kasey Reardon MD LAB BLOOD ORDERABLES Final Result [facility] [address] [place] [address] [phone] from Last 3 Months Insurance [facility] C3 Care Teams Share Holder Relationship Specialty Start Date End Date Kasey Reardon MD [address] [facility] [place] [address] PCP - General Internal Medicine 06/15/21
--- OUTSIDE RECORDS SUMMARY | 2025-01-01 16:32 | XMS_ITS | Encounter Summary ---
Author Organization [employer] Address [address] [facility] [address] [place] [address] Care Team Providers Care Massage Coordinator Name Role Phone Kasey Reardon MD Primary Care Provider [phone] Reason for Visit * Reason Onset Date Comments chart prep 12/27/2024 Encounter Details Date Type Department Care Team ([facility] Contact Info) Description 12/27/2024 Telephone [facility] [address] [place], [place] [phone] Kasey Reardon MD [address] [place], [place] [phone] chart prep Social History Tobacco Use Types Packs/Day Years [...] encounter Miscellaneous Notes * Telephone Encounter - Lupe Mcgee [place] - 12/27/2024 8:51 AM EST Chart Prep Labs: not done Images: not done Vaccines due: yes Referrals: complete Screenings: Overdue care gaps: PHQ-9 documented in this encounter Plan of Treatment Not on file documented as of this encounter Visit Diagnoses Not on filedocumented in this encounter Additional Health Concerns Assessment Noted Time PHQ-9 Depression Total Score: 9 11/19/19 25 1:25 PM EST documented as of this encounter Care Teams Massage Coordinator Relationship Specialty Start Date End Date Kasey Reardon MD [address] [place] [address] [place] [phone] PCP - General Internal Medicine 06/15/21 documented as of this encounter
--- OUTSIDE RECORDS SUMMARY | 2025-01-01 16:32 | XMS_ITS | Encounter Summary ---
Author Organization [employer] Address [address] [facility] [address] [place] [address] Care Team Providers Care Fiction Writer Name Role Phone Kasey Reardon MD Primary Care Provider [phone] Reason for Visit * Reason Onset Date Comments Imaging Orders 12/09/2024 No Show US Abdom en Encounter Details Date Type Department Care Team ([facility] st Contact Info) Description 12/09/[address] [facility] [address], [place] [phone] Lizbeth Marshall RN [address] [place], [place] [phone] Imaging Orders (No Show US Abdomen ) [...] documented as of this encounter Care Teams Fiction Writer Relationship Specialty Start Date End Date Kasey Reardon MD [address] [place] [phone] PCP - General Internal Medicine 06/15/21 documented as of this encounter
--- OUTSIDE RECORDS SUMMARY | 2025-01-01 16:32 | XMS_ITS | Encounter Summary ---
Author Organization [facility] [employer] Address [address] [facility] 7t [place] [address] Care Team Providers Care Hotel Front Desk Agent Name Role Phone Kasey Reardon MD Primary Care Provider [phone] Reason for Referral * Consultation (Routine) - Closed Specialty Diagnoses / Procedures Referred By Ashley islas Referred To Contact Pain Medicine Diagnoses Paresthesias Kasey Reardon MD [address] [place] [address] Phone: tel: fax: Rickey Leary MD [address] [place] [address] [address] [place] [address] Phone: tel: fax: Referral ID Status Reason Start Date Expiration Date V isits Requested Visits Authorized [id number] Closed Specialty Services Required 12/05/2024 12/05/2025 1 1 * Imaging (Routine) - Closed Specialty Diagnoses / Procedures Referred By Ashley islas Referred To Contact Radiology Diagnoses Transaminitis Procedures US Abdomen Complete Kasey Reardon MD [address] [place] [address] Phone: tel: fax: [facility] [address] [facility], [address] [place] [address] Phone: tel: fax: Referral ID Status Reason Start Date Expiration Date Visits Re quested Visits Authorized [id number] Closed 11/21/2024 11/21/2025 1 1 Encounter Details Date Type Department Care Team (Late st Contact Info) Description 11/21/[address] [facility]S [address] [place] [address] Kasey Reardon MD [address] [place] [address] Transaminitis (Primary Dx); Paresthesias Social History Tobacco [...] as of this encounter Plan of Treatment Pending Results Name Type Priority Associated Diagnoses [...] documented as of this encounter Care Teams Hotel Front Desk Agent Relationship Specialty Start Date End Date Kasey Reardon MD [address] [place] [phone] PCP - General Internal Medicine 06/15/21 documented as of this encounter
--- OUTSIDE RECORDS SUMMARY | 2025-01-01 16:32 | XMS_ITS | Encounter Summary ---
Author Organization [employer] Address [address] [facility] 7 [place] [address] Care Team Providers Care Medical Technicians Name Role Phone Kasey Reardon MD Primary Care Provider [phone] Reason for Visit * Reason Comments Follow-up Encounter Details Date Type Department Care Team ([facility] Contact Info) Description 12/30/2024 10:00 AM EST Office Visit [facility] CHC MED & PEDS [address] [place], [place] [phone] Kasey Reardon MD [address] [place], [place] [phone] Chronic bilateral low back pain with left-sided sciatica (Primary Dx); Primary hypertension; Chronic right shoulder pain Social History Tobacco Use Types Packs/Day Years [...] your housing situation today? I have tony victoriano 11/19/[address] you li [...] AM EDT documented as of this encounter Last Filed Vital Signs Vital Sign Reading [...] Mass Index 33.32 12/30/2024 9:51 AM EST documented in this encounter Progress Notes * Kasey Reardon MD - 12/30/2024 10:00 AM EST Subjective Patient ID: Attila Stanford is a 39 y.o. male who presents for Follow-up. HPI 1.) BP was elevated at the last visit. Patient has made some lifestyle changes. Denies any headacheor blurry vision. 2) history of chronic back pain radiating to the left lower limb. MRI results reviewed. Patient received a message about the result. All questions were answered. He has a scheduled appointment for anevaluation by pain management. Patient feels that methocarbamol caused abdominal pain. Would like adifferent muscle relaxer. 3) history of insomnia. Started on hydroxyzine 100 mg at bedtime which is well- tolerated. Sleep hasimproved. 4) currently receiving psychiatric care. Just started a new medication. Unsure if the medication ishelping. 5) history of right shoulder pain for several months getting progressively worse exacerbated by reaching overhead and movement in general of the right shoulder. Patient Active Problem List Diagnosis Subacute sinusitis Schizoaffective disorder, bipolar type ([facility]) Current Outpatient Medications on File Prior to Visit Medication Sig Dispense Refill b complex vitamins capsule Take 1 capsule by mouth Once per day. 30 capsule 11 cetirizine (ZyrTEC) 10 MG tablet TAKE 1 TABLET BY MOUTH IN THE MORNING. 90 tablet 0 fluticasone (Flonase) 50 MCG/ACT nasal spray Administer 1 spray into each nostril in the morning. 16 g 2 hydrOXYzine pamoate (Vistaril) 50 MG capsule Take 1 capsule (50 mg) by mouth if needed at bedtime for anxiety. 1 to 2 tabs at bedtime 30 capsule 1 paliperidone (Invega) 3 MG 24 hr tablet Take 1 tablet (3 mg) by mouth at bedtime. Do not crush, chew, or split. 30 tablet 1 sodium chloride ([place] Nasal [place]) 0.65 % nasal spray Administer 1 spray into each nostril if needed for congestion. 30 mL 0 [DISCONTINUED] hydrOXYzine pamoate (Vistaril) 50 MG capsule Take 1 capsule (50 mg) by mouth if needed at bedtime for itching. 1 to 2 tabs at bedtime 60 capsule 3 [DISCONTINUED] methocarbamol (Robaxin) 750 MG tablet Take 1 tablet (750 mg) by mouth 4 times daily for 10 days. 40 tablet 0 [DISCONTINUED] methocarbamol (Robaxin) 750 MG tablet Take 1 tablet (750 mg) by mouth 4 times daily for 10 days. 40 tablet 0 No current facility-administered medications on file prior to visit. No Known Allergies Review of Systems Constitutional: Negative for appetite change, chills and diaphoresis. HENT: Negative for drooling and ear discharge. Respiratory: Negative for cough, choking and shortness of breath. Musculoskeletal: Positive for arthralgias and back pain. Objective BP 136/88 (BP Location: Left arm, Patient Position: Sitting, BP Cuff Size: Large adult) Pulse 72 Temp 98.2 ??F (36.8 ??C) (Oral) Resp 20 Ht 5' 7.32 (1.71 m) Wt 214 lb 12.8 oz (97.4 kg) SpO2 98% BMI 33.32 kg/m?? Physical Exam Constitutional: General: He is not in acute distress. Appearance: Normal appearance. He is not ill-appearing, toxic-appearing or diaphoretic. Cardiovascular: Rate and Rhythm: Normal rate. Pulmonary: Effort: Pulmonary effort is normal. Abdominal: Palpations: Abdomen is soft. Musculoskeletal: Right shoulder: Tenderness present. Decreased range of motion. Left shoulder: Normal. Neurological: Mental Status: He is alert. Assessment/Plan Diagnoses and all orders for this visit: Chronic bilateral low back pain with left-sided sciatica Comments: Pain management evaluation as scheduled Continue with Celebrex. Methocarbamol discontinued. Start tizanidine. Orders: - XR Shoulder 2+ Views Right; Future - tiZANidine (Zanaflex) 4 MG tablet; Take 1 tablet (4 mg) by mouth every 6 (six) hours if needed for muscle spasms for up to 10 days. Primary hypertension Comments: Continue with the DASH diet Follow-up in 3 months. Chronic right shoulder pain Comments: X-ray ordered. Patient will be contacted with result. We will consider referral to get a steroid injection after the x-ray. documented in this encounter Plan of Treatment Scheduled Orders Name Type Priority Associated Diagnoses Orde r Schedule XR Shoulder 2+ Views Right Imaging Routine Chronic bilateral low back pain with left-sided sciatica Expected: 12/30/2024, Expires: 12/30/2025 documented as of this encounter Visit Diagnoses Diagnosis Chronic bilateral low back pain with left-sided sciatica- Primary Primary hypertension Unspecified essential hypertension Chronic right shoulder pain Pain in joint, shoulder region documented in this encounter Additional Health Concerns Assessment Noted Time PHQ-9 Depression Total Score: 9 11/19/19 25 1:25 PM EST documented as of this encounter Care Teams Medical Technicians Relationship Specialty Start Date End Date Kasey Reardon MD [address] [place] [address] [place] [address] PCP - General Internal Medicine 06/15/21 documented as of this encounter
--- OUTSIDE RECORDS SUMMARY | 2025-01-01 16:32 | XMS_ITS | Encounter Summary ---
Author Organization [employer] Address 75 [facility] 7t [place] [address] Care Team Providers Care Ticker Wirer Name Role Phone Kasey Reardon MD Primary Care Provider [phone] Encounter Details Date Type Department Care Team ([facility] st Contact Info) Description 12/26/2024 Orders Only [facility] CHC MED & PEDS [address] [place], [place] [phone] Kasey Reardon MD 505 [place], [place] [phone] Social History Tobacco Use Types Packs/Day Years [...] as of this encounter Plan of Treatment Not on file documented as of this encounter Procedures Procedure Name Priority Date/Time Associated Diagnosis Comments XR CERVICAL SPINE 3V Routine 12/27/2024 11:28 AM EST documented in this encounter Results * XR CERVICAL SPINE 3V (12/27/2024 11:28 AM EST) Anatomical Region Laterality Modality Abdomen Radiographic Antonina ging 12/27/2024 11:2 8 AM EST Narrative 12/27/2024 11:29 AM EST ? [facility] ?[address] ?[place] [address] ?XRay Report ? Signed ? Patient: Attila Stanford ?MR#: [id number] ?? [id number] ? : 1985 ?Acct:[id number] ? Age/Sex: 39 / M ?ADM Date: 12/26/ ? Loc: HO.XRAY ? Attending Dr: Kasey Reardon MD ? Ordering Physician: Kasey Reardon MD ?? Date of Service: 12/26/24 ?? Procedure(s): XR cervical spine 3V ?? Accession Number(s): [id number] ? cc: Kasey Reardon MD ? CLINICAL [...] by Carlos Nunez MD in OV> ? 12/27/249 ? DD/ ? TD/TT: 12/27/24 1128 ? Parole Agent: ? Procedure Note JeramieMary stuart - 12/27/[address] [address] XRay Report Signed Patient: Attila Stanford JMR#: [id number] : 1985Acct:[id number] Age/Sex: 39 / MADM Date: 12/26/24 Loc: HO.HARSH Attending Dr: Kasey Reardon MD Ordering Physician: Kasey Reardon MD Date of Service: 12/26/24 Procedure(s): XR cervical spine 3V Accession Number(s): [id number] cc: Kasey Reardon MD CLINICAL HISTORY: NECK PAIN 5 views cervical spine Comparison: None Findings: Normal vertebral body alignment. No acute fractures or dislocation. No significant degenerative change. Prevertebral soft tissues within normal limits. IMPRESSION: No acute findings. This document has been electronically signed by: Carlos Nunez MD on 12/27/2024 11:28:32 Dictated By: Carlos Nunze MD Signed By: <Electronically signed by Carlos Nunez MD in OV> 12/27/24 1129 DD/ 1128 TD/TT: 12/27/24 1128 Parole Agent: us Kasey Reardon MD IMG XR PROCEDURES Final Res ult documented in this encounter Visit Diagnoses Not on filedocumented in this encounter Additional Health Concerns Assessment Noted Time PHQ-9 Depression Total Score: 9 11/19/19 25 1:25 PM EST documented as of this encounter Care Teams Ticker Wirer Relationship Specialty Start Date End Date Kasey Reardon MD [address] [place] [id number] PCP - General Internal Medicine 06/15/21 documented as of this encounter
--- OUTSIDE RECORDS SUMMARY | 2025-01-01 16:32 | XMS_ITS | Encounter Summary ---
Author Organization [employer] Address [address] [facility] [address] 7[address] [place] [address] Care Team Providers Care Heat Treatment Technician Name Role Phone Kasey Reardon MD Primary Care Provider [phone] Encounter Details Date Type Department Care Team (Latest Contact Info) Description 12/30/2024 Travel Social History Tobacco Use Types Packs/Day Years [...] documented as of this encounter Care Teams Heat Treatment Technician Relationship Specialty Start Date End Date Kasey Reardon MD [address] [place] [id number] PCP - General Internal Medicine 06/15/21 documented as of this encounter
--- OUTSIDE RECORDS SUMMARY | 2025-01-01 16:32 | XMS_ITS | Encounter Summary ---
Author Organization [employer] Address [address] [facility] 7 [place] [address] Care Team Providers Care Acid Tester Name Role Phone Kasey Reardon MD Primary Care Provider [phone]- [phone] Reason for Visit * Reason Onset Date Comments Results 12/05/2024 MRI Encounter Details Date Type Department Care Team ([facility] Contact Info) Description 12/05/2024 Telephone [facility] CHC MED & PEDS [address] [place], [place] [phone] Kasey Reardon MD 505 [place], [place] [phone] Results (MRI) Social History Tobacco Use Types [...] documented as of this encounter Care Teams Acid Tester Relationship Specialty Start Date End Date Kasey Reardon MD [address] [place] [id number] PCP - General Internal Medicine 06/15/21 documented as of this encounter
== END 2025-01-01 13:51 | disposition home or self-care (01) ==
LOC: HO.XRAY 13:50
PROVIDERS: PCP Internal Medicine; Visit Provider Internal Medicine
DX: M25.511 Pain in right shoulder (principal); G89.29 Other chronic pain; M54.42 Lumbago with sciatica, left side
CPT/HCPCS: 73030

== ENCOUNTER → 2025-01-01 13:54 | Outpatient (BNV) | payer MEDICAID, SELFPAY | PROVIDERS: PCP Internal Medicine; Visit Provider Radiology Diagnostic Radiology | DX: M25.511 Pain in right shoulder (principal) | CPT/HCPCS: 73030 ==

== ENCOUNTER 2025-08-13 18:42 | Outpatient (REF) | payer MEDICAID, SELFPAY ==
--- OUTSIDE RECORDS SUMMARY | 2025-08-13 16:00 | XMS_ITS | Encounter Summary ---
Author Organization [employer] Address [address] [place] [address] 7 [place] [address] Care Team Providers Care Retrofit Installer Name Role Phone Kasey Reardon MD Primary Care Provider [phone]- [phone] Reason for Referral * Imaging (Routine) - Pending Review Specialty Diagnoses / Procedures Referred By Contcorrine islas Referred To Contact Radiology Diagnoses Bilateral flank pain Procedures US RENAL BI Kasey Reardon MD [address] [place] [address] Phone: tel: fax: Referral ID Status Reason Start Date Expiration Date V isits Requested Visits Authorized [id number] Pending Review 08/13/2025 08/13/2026 1 1 Reason for Visit * Reason Comments Flank Pain Encounter Details Date Type Department Care Team ([facility] Contact Info) Description 08/13/2025 4:00 PM EDT Office Visit [facility] MED & PEDS [address] [place] [address] Kasey Reardon MD [address] [place] [address] Bilateral flank pain (Primary Dx); Chronic bilateral low back pain with left-sided sciatica; Chronic right shoulder pain; Dietary counseling; Exercise counseling; Class 1 obesity due to excess calories with serious comorbidity and body mass index (BMI) of 32.0 to 32.9 in adult Social History Tobacco Use Types Packs/Day Years Used Date Smoking Tobacco: Every Day Cigarettes Smokeless Tobacco: Never Alcohol Use Standard Drinks/Week Comments Never 0 (1 standard drink = 0.6 oz pur e alcohol) Depression Answer Date Recorded Patient Health Questionnaire-9 Score 9 06/16/2025 Patient Health Questionnaire-9 Score 9 06/16/2025 Last PHQ-9: Questionnaire Data Not on file 0 06/16/2025 Housing Stability Answer Date Recorded What is your housing situation today? I have tony pastrana 11/19/[address] you li ve. Do you have problems with any of the following? None of the above 11/19/2024 Food Insecurity Answer Date Recorded Within the past 12 months, y ou worried that your food would run out before you got money to buy more: Often true 06/16/2025 Within the past 12 months,th e food you bought just didn't last and you didn't have enough money to get more: Often true Transportation Answer Date Recorded In the past [...] Answer Date Recorded Patient Health Questionnaire-2 Score 3 06/16/2025 Internet Access Answer Date Recorded Internet Access [...] Sign Reading Time Taken Comments Blood Pressure 140/88 08/13/2025 4:05 PM EDT Pulse 74 08/13/2025 4:05 PM EDT Temperature 36.5 C (97.7 F) 08/13/2025 4:05 PM EDT Respiratory Rate 14 08/13/2025 4:05 PM EDT Oxygen Saturation 97% 08/13/2025 4:05 PM EDT Inhaled Oxygen Concentration - - Weight 93.4 kg (206 lb) 08/13/2025 4:05 PM EDT Height 170.8 cm (5' 7.25 ) 08/13/2025 4:05 PM ED T Body Mass Index 32.02 08/13/2025 4:05 PM EDT documented in this encounter Progress Notes * Kasey Reardon MD - 08/13/2025 4:00 PM EDT SUBJECTIVE Attila Stanford is a 40 y.o. male who presents for Flank Pain. Flank Pain Sudden onset of flank pain bilaterally that started after urination. Patient stopped while he was driving on the road to urinate and the flank pain started immediately after urination and lasted about 1 minute. The pain was severe and resolved by itself. No reported flank pain since then. Currentlyasymptomatic. Problem List[1] Allergies[2] Medications Ordered Prior to Encounter[3] Review of Systems Constitutional: Negative for appetite change, chills and diaphoresis. Respiratory: Negative for cough, choking and shortness of breath. Cardiovascular: Negative for leg swelling. Gastrointestinal: Negative for anal bleeding, blood in stool and constipation. Genitourinary: Positive for flank pain. OBJECTIVE Vitals: 08/13/25 1605 BP: (!) 140/88 BP Location: Left arm Patient Position: Sitting BP Cuff Size: Large adult Pulse: 74 Resp: 14 Temp: 97.7 ??F (36.5 ??C) TempSrc: Oral SpO2: 97% Weight: 206 lb (93.4 kg) Height: 5' 7.25 (1.708 m) Physical Exam Constitutional: General: He is not in acute distress. Appearance: Normal appearance. He is not ill-appearing, toxic-appearing or diaphoretic. Cardiovascular: Rate and Rhythm: Normal rate. Pulmonary: Effort: Pulmonary effort is normal. Musculoskeletal: Comments: Mild tenderness to palpation of the paraspinal muscles of the lumbar spine bilaterally. No rash. Neurological: Mental Status: He is alert. Assessment/Plan Assessment/Plan Diagnoses and all orders for this visit: Bilateral flank pain - POCT urinalysis dipstick manually resulted (CPT 34197) - Culture, Urine, Routine; Future - tiZANidine (Zanaflex) 4 MG tablet; Take 1 tablet (4 mg) by mouth every 8 (eight) hours if needed for muscle spasms. Chronic bilateral low back pain with left-sided sciatica Comments: Pain management evaluation as scheduled Continue with Celebrex and tizanidine as directed. Orders: - tiZANidine (Zanaflex) 4 MG tablet; Take 1 tablet (4 mg) by mouth every 8 (eight) hours if needed for muscle spasms. Chronic right shoulder pain Comments: Patient denies shoulder pain during the evaluation No acute intervention today. Orders: - celecoxib (CeleBREX) 200 MG capsule; Take 1 capsule (200 mg) by mouth 2 times daily. Dietary counseling Exercise counseling Class 1 obesity due to excess calories with serious comorbidity and body mass index (BMI) of 32.0 to 32.9 in adult Dietary Recommendations: Fruits, vegetables, whole grains, protein foods, and fat-free or low-fat dairy products are healthychoices. Eat different types of protein foods in your diet. This can include seafood, lean meats, poultry, beans, peas, lentils, nuts, seeds, soy products, and eggs. Limit foods and beverages higher in added sugars, saturated fat, and sodium. Exercise Recommendations: At least 150 minutes of moderate-intensity physical activity per week, or an equivalent combinationof moderate- and vigorous-intensity activity [1] Patient Active Problem List Diagnosis Subacute sinusitis Schizoaffective disorder, bipolar type (CMS/HCC) (HCC) Mood disorder (CMS/HCC) [2] No Known Allergies [3] Current Outpatient Medications on File Prior to Visit Medication Sig Dispense Refill ARIPiprazole (Abilify) 10 MG tablet Take 1.5 tablets (15 mg) by mouth Once per day. 45 tablet 1 b complex vitamins capsule Take 1 capsule by mouth Once per day. 30 capsule 11 cetirizine (ZyrTEC) 10 MG tablet TAKE 1 TABLET BY MOUTH IN THE MORNING 90 tablet 0 fluticasone (Flonase) 50 MCG/ACT nasal spray Administer 1 spray into each nostril in the morning. 16 g 2 hydrOXYzine pamoate (Vistaril) 100 MG capsule Take 1 capsule (100 mg) by mouth if needed at bedtimefor anxiety. 30 capsule 1 mirtazapine (Remeron) 7.5 MG tablet Take 1 tablet (7.5 mg) by mouth at bedtime. 30 tablet 1 OXcarbazepine (Trileptal) 150 MG tablet Take 1 tablet (150 mg) by mouth 2 times daily. 60 tablet 11 tiZANidine (Zanaflex) 4 MG tablet TAKE 1 TABLET(4 MG) BY MOUTH EVERY 6 HOURS NEEDED FOR MUSCLE SPASMS 30 tablet 2 [DISCONTINUED] celecoxib (CeleBREX) 200 MG capsule TAKE 1 CAPSULE(200 MG) BY MOUTH TWICE DAILY 60 capsule 0 [DISCONTINUED] tiZANidine (Zanaflex) 4 MG tablet TAKE 1 TABLET(4 MG) BY MOUTH EVERY 6 HOURS FOR UP TO 10 DAYS NEEDED FOR MUSCLE SPASMS 30 tablet 0 No current facility-administered medications on file prior to visit. documented in this encounter Plan of Treatment Scheduled Orders Name Type Priority Associated Diagnoses Orde r Schedule Culture, Urine, Routine Microbiology Routine Bilateral flank pain Expected: 08/13/2025 (Approximate), Expires: 08/13/2026 US RENAL BI Imaging Routine Bilateral flank pain Expected: 08/13/2025, Expires: 08/13/2026 documented as of this encounter Procedures Procedure Name Priority Date/Time Associated Diagnosis Comments POCT URINALYSIS DIPSTICK Routine 08/13/2025 4:34 PM EDT Bilateral flank pain documented in this encounter Results * POCT urinalysis dipstick manually resulted (CPT 88048) (08/13/2025 4:34 PM EDT) Color, UA Yellow Clarity, UA Clear Glucose, UA Negative Bilirubin, UA Negative Ketones, UA Negative Spec Grav, UA 1.015 Blood, UA Negative Negative, None Detected pH, UA 6.5 Protein, UA Negative Urobilinogen, UA 0.2 Leukocytes, UA Negative Negative, Rare, Trace Nitrite, UA Negative Negative, None Detected Appearance, UA clear QC Media Lot # Comment:[id number] Lot# Expiration Date Comment:04/28/2026 Urine (Urine, Random) 08/13/2025 4:34 PM EDT Kasey Reardon MD POINT OF CARE TEST ENTER/ED IT ORDERABLES Final Result documented in this encounter Visit Diagnoses Diagnosis Bilateral flank pain- Primary Abdominal pain, unspecified site Chronic bilateral low back pain with left-sided sciatica Chronic right shoulder pain Pain in joint, shoulder region Dietary counseling Dietary surveillance and counseling Exercise counseling Class 1 obesity due to excess calories with serious comorbidity and body mass index (BMI) of 32.0 to 32.9 in adult documented in this encounter Additional Health Concerns Assessment Noted Time PHQ-9 Depression Total Score: 9 06/16/20 25 1:31 PM EDT documented as of this encounter Care Teams Retrofit Installer Relationship Specialty Start Date End Date Kasey Reardon MD [address] [place] [id number] PCP - General Internal Medicine 06/15/21 documented as of this encounter
--- OUTSIDE RECORDS SUMMARY | 2025-08-13 19:37 | XMS_ITS | Encounter Summary ---
Author Organization [employer] Address [address] [facility] 7 [place] [address] Care Team Providers Care Paper Twister Tender Name Role Phone Kasey Reardon MD Primary Care Provider [phone]- [phone] Reason for Visit * Reason Onset Date Comments Med Refill 02/26/2025 Encounter Details Date Type Department Care Team ([facility] st Contact Info) Description 02/26/2025 Refill [facility] CHC MED & PEDS [address] [place], [place] [phone] Kasey Reardon MD [address] [place] [address] Chronic bilateral low back pain with left-sided sciatica Social History Tobacco Use Types Packs/Day Years [...] is your housing situation today? I have tonyamilcar pastrana 11/19/[address] you [...] bilateral low back pain with left-sided sciatica documented in this encounter Additional Health Concerns Assessment Noted Time PHQ-9 Depression Total Score: 9 11/19/19 25 1:25 PM EST documented as of this encounter Care Teams Paper Twister Tender Relationship Specialty Start Date End Date Kasey Reardon MD [address] [place] [id number] PCP - General Internal Medicine 06/15/21 documented as of this encounter
--- OUTSIDE RECORDS SUMMARY | 2025-08-13 19:37 | XMS_ITS | Encounter Summary ---
Author Organization [employer] Address [address] [facility] 7 [place] [address] Care Team Providers Care Sales Vice President Name Role Phone Kasey Reardon MD Primary Care Provider +1- [phone] Reason for Visit * Reason Onset Date Comments Med Refill 07/17/2025 Encounter Details Date Type Department Care Team ([facility] st Contact Info) Description 07/17/2025 Refill [facility] CHC MED & PEDS [address] [place] [address] Kasey Reardon MD [address] [place] [address] Chronic bilateral low back pain with left-sided [...] documented as of this encounter Care Teams Sales Vice President Relationship Specialty Start Date End Date Kasey Reardon MD [address] [place] [id number] PCP - General Internal Medicine 06/15/21 documented as of this encounter
--- OUTSIDE RECORDS SUMMARY | 2025-08-13 19:37 | XMS_ITS | Encounter Summary ---
Author Organization [employer] Address 75 [facility] 7 [place] [address] Care Team Providers Care Delivery Supervisor Name Role Phone Kasey Reardon MD Primary Care Provider [phone]- [phone] Reason for Visit * Reason Onset Date Comments Nurse Triage 08/13/2025 Encounter Details Date Type Department Care Team ([facility] st Contact Info) Description 08/13/2025 Telephone [facility] MED & PEDS [address] [place] [address] Kasey Reardon MD [address] [place] [address] Nurse Triage Social History Tobacco Use Types Packs/Day Years [...] encounter Miscellaneous Notes * Telephone Encounter - Jazmyne Ricketts RN - 08/13/2025 10:23 AM EDT Patient reports yesterday when he was urinating he felt pain states not burning with urination was a sharp flank/back pain he also states that he feels some urgency has to run to the bathroom howeverdoesn't always void. Reports this all started yesterday, pt denies fever, foul odor, discharge or any new sexual partners. Pt scheduled to be seen in [place] today at 4 pm. Protocol Used: Urination Pain - Male (Adult) Protocol-Based Disposition: See in Office or Video Visit Today Positive Triage Question: * All other males with painful urination, or patient wants to be seen * All higher-acuity triage questions were negative Care Advice Discussed: * Drink Extra Fluids * Telephone Encounter - Abraham Osborne - 08/13/2025 9:58 AM EDT Symptom: Urination Pain Outcome: Schedule an urgent appointment (within 1 hour) or talk to a nurse or provider soon Reason: Severe pain now The caller accepted this outcome. Contact pt at [phone] documented in this encounter Plan of Treatment Not on file documented as of this encounter Visit Diagnoses Not on filedocumented in this encounter Additional Health Concerns Assessment Noted Time PHQ-9 Depression Total Score: 9 06/16/20 25 1:31 PM EDT documented as of this encounter Care Teams Delivery Supervisor Relationship Specialty Start Date End Date Kasey Reardon MD [address] [place] [id number] PCP - General Internal Medicine 06/15/21 documented as of this encounter
--- OUTSIDE RECORDS SUMMARY | 2025-08-13 19:37 | XMS_ITS | Encounter Summary ---
Author Organization [employer] Address 75 [facility] 7 [place] [address] Care Team Providers Care Pharmacy Informaticist Name Role Phone Kasey Reardon MD Primary Care Provider +1- [phone] Reason for Visit * Reason Comments Med Refill Encounter Details Date Type Department Care Team ([facility] st Contact Info) Description 06/05/2025 Refill [facility] CH[facility] MED & PEDS [address] [place], [place] [phone] Kasey Reardon MD [address] [place], [place] [phone] Chronic bilateral low back pain with left-sided [...] documented as of this encounter Care Teams Pharmacy Informaticist Relationship Specialty Start Date End Date Kasey Reardon MD [address] [place] [id number] PCP - General Internal Medicine 06/15/21 documented as of this encounter
--- OUTSIDE RECORDS SUMMARY | 2025-08-13 19:37 | XMS_ITS | Encounter Summary ---
Author Organization [employer] Address 75 [facility] 7 [place] [address] Care Team Providers Care Breaster Name Role Phone Kasey Reardon MD Primary Care Provider [phone]- [phone] Reason for Visit * Reason Comments Med Refill Encounter Details Date Type Department Care Team ([facility] st Contact Info) Description 03/15/[address] [facility] CHC MED & PEDS [address] [place], [place] [phone] Kasey Reardon MD 505 [place], [place] [phone] Chronic bilateral low back pain with left-sided [...] documented as of this encounter Care Teams Breaster Relationship Specialty Start Date End Date Kasey Reardon MD [address] [place] [id number] PCP - General Internal Medicine 06/15/21 documented as of this encounter
--- OUTSIDE RECORDS SUMMARY | 2025-08-13 19:37 | XMS_ITS | Clinical Summary ---
Author Organization [employer] Address 75 [facility] 7t [place] [address] Care Team Providers Care Strategic Planning Analyst Name Role Phone Kasey Reardon MD Primary Care Provider Allergies No known active allergies Medications * This document contains information received from the source organization and may not represent a complete record from that organization. fluticasone (Flonase) 50 MCG/ACT nasal spray Administer 1 spray into each nostril in the morning. 16 g 2 01/27/20 24 Active b complex vitamins capsuleIndicati ons:Paresthesia s Take 1 capsule by mouth Once per day. 30 capsule 11/21/19 25 026 Active ARIPiprazole (Abilify) 10 MG tabletIndicatio ns:Mood disorder (CMS/HCC) Take 1.5 tablets (15 mg) by mouth Once per day. 45 tablet 1 04/01/20 25 Active hydrOXYzine pamoate (Vistaril) 100 MG capsuleIndicati ons:Primary insomnia Take 1 capsule (100 mg) by mouth if needed at bedtime for anxiety. 30 capsule 1 04/01/20 25 Active mirtazapine (Remeron) 7.5 MG tabletIndicatio ns:Primary insomnia Take 1 tablet (7.5 mg) by mouth at bedtime. 30 tablet 1 04/01/20 25 Active OXcarbazepine (Trileptal) 150 MG tabletIndicatio ns:Meralgia paresthetica of left side Take 1 tablet (150 mg) by mouth 2 times daily. 60 tablet 06/16/20 25 026 Active tiZANidine (Zanaflex) 4 MG tabletIndicatio ns:Chronic bilateral low back pain with left-sided sciatica TAKE 1 TABLET(4 MG) BY MOUTH EVERY 6 HOURS NEEDED FOR MUSCLE SPASMS 30 tablet 2 07/17/20 25 Active cetirizine (ZyrTEC) 10 MG tablet TAKE 1 TABLET BY MOUTH IN THE MORNING 90 tablet 07/21/20 25 Active tiZANidine (Zanaflex) 4 MG tabletIndicatio ns:Bilateral flank pain,Chronic bilateral low back pain with left-sided sciatica Take 1 tablet (4 mg) by mouth every 8 (eight) hours if needed for muscle spasms. 30 tablet 08/13/20 25 Active celecoxib (CeleBREX) 200 MG capsuleIndicati ons:Chronic right shoulder pain Take 1 capsule (200 mg) by mouth 2 times daily. 60 capsule 08/13/20 25 Active celecoxib (CeleBREX) 200 MG capsuleIndicati ons:Chronic right shoulder pain TAKE 1 CAPSULE(200 MG) BY MOUTH TWICE DAILY 60 capsule 02/04/20 25 025 Discontinued(R eorder (will not trigger notification to Pharmacy)) tiZANidine (Zanaflex) 4 MG tabletIndicatio ns:Chronic bilateral low back pain with left-sided sciatica TAKE 1 TABLET(4 MG) BY MOUTH EVERY 6 HOURS FOR UP TO 10 DAYS NEEDED FOR MUSCLE SPASMS 30 tablet 02/04/20 25 025 Discontinued(T herapy completed) cetirizine (ZyrTEC) 10 MG tablet TAKE 1 TABLET BY MOUTH IN THE MORNING 90 tablet 03/31/20 25 025 Discontinued tiZANidine (Zanaflex) 4 MG tabletIndicatio ns:Chronic bilateral low back pain with left-sided sciatica Take 1 tablet (4 mg) by mouth every 6 (six) hours if needed for muscle spasms. 30 tablet 2 06/05/20 25 025 Discontinued Hospital, Clinic, or Other Facility Administered Medication Ordered Dose Route Frequency Start Date End Date Status triamcinolone acetonide (Kenalog-40) injection 80 mgIndications:Chronic right shoulder pain 80 mg IX Once 07/15/2025 07/15/2025 Ended lidocaine (Xylocaine) 1 % injection 20 mgIndications:Chronic right shoulder pain 20 mg IJ Once 07/15/2025 07/15/2025 Ended Active Problems Problem Noted Date Diagnosed Date Mood disorder 02/18/2025 Schizoaffective disorder, bipolar type ([facility]/HCC) 12/26/2024 Subacute sinusitis 01/27/2024 Assessment & Plan (01/28/2024 11:20 PM EDT): Rx z-pack x 5d Rest (sleep at least 8 hours a night). Hydrate with plenty of water (avoid caffeine and alcohol). Use saline nose drops to loosen mucus Take Acetaminophen (Tylenol )/Ibuprofen as needed to reduce fever, headache, body [...] 72 hours (temperature should be less than 100 F without medication). Out of work until 01/29/24, can be back on 01/29 if afebrile x 24h. Encounters * This document contains information received from the source organization and may not represent a complete record from that organization. Date Type Department Care Team Description 08/13/2025 4:00 PM EDT Office Visit [facility] [address] [place] [address] Kasey Reardon MD Bilateral flank pain (Primary Dx); Chronic bilateral low back pain with left-sided sciatica; Chronic right shoulder pain; Dietary counseling; Exercise counseling; Class 1 obesity due to excess calories with serious comorbidity and body mass index (BMI) of 32.0 to 32.9 in adult 08/13/2025 Travel 08/13/2025 Telephone [facility] [address] [place] [address] Kasey Reardon MD Nurse Triage 07/19/2025 Refill [facility] [address] [place] [address] Kasey Reardon MD 07/17/2025 Refill [facility] [address] [place] [address] Kasey Reardon MD Chronic bilateral low back pain with left-sided sciatica 07/16/2025 Refill [facility] [address] [place], [place] [phone] Kasey Reardon MD Chronic bilateral low back pain with left-sided sciatica 07/15/2025 10:15 AM EDT Procedure Visit [facility] [address] [place] [address] Ava Yusuf MD Chronic right shoulder pain (Primary Dx) 07/15/2025 Travel 06/16/2025 1:00 PM EDT Office Visit [facility] [address] [place], [place] [phone] Kasey Reardon MD Primary hypertension (Primary Dx); Schizoaffective disorder, bipolar type (CMS/HCC); Chronic bilateral low back pain with left-sided sciatica; Meralgia paresthetica of left side 06/16/2025 Travel 06/13/2025 Telephone [facility] [address] [place] [address] Kasey Reardon MD chart prep 06/05/2025 Refill [facility] [address] [place] [address] Kasey Reardon MD Chronic bilateral low back pain with left-sided sciatica 06/05/2025 Refill [facility] [address] [place], [place] [phone] Kasey Reardon MD Chronic bilateral low back pain with left-sided sciatica 05/29/2025 Refill [facility] [address] [place], [place] [phone] Kasey Reardon MD Chronic bilateral low back pain with left-sided sciatica 05/18/2025 Refill [facility] [address] [place], [place] [phone] Naomi Doss, TRACI Chronic bilateral low back pain with left-sided sciatica from Last 3 Months Social History Tobacco Use Types Packs/Day Years Used Date Smoking Tobacco: Every Day Cigarettes Smokeless Tobacco: Never Tobacco Cessation:Ready to Q uit: Not Asked; Counseling Given: Not Answered Alcohol Use Standard Drinks/Week Comments Never 0 [...] Mass Index 32.02 08/13/2025 4:05 PM EDT Plan of Treatment Health Maintenance Due Date Last Done Comments HIV Screening 1984 Lipid Panel 1984 Family Planning (PISQ) 01/12/1999 HPV Vaccines (1 - Male 3-dos e series) 01/12/1999 Hepatitis C Screening 01/12/2002 Hepatitis B Vaccines (1 of 3 - 19+ 3-dose series) 01/12/2003 Pneumococcal Vaccine: Pediatrics (0 to 5 Years) and At-Risk Patients (6 to 49) Years (1 of 2 - PCV) 01/12/2003 COVID-19 Vaccine (2 - 2024-2 6 season) 2025 05/17/2021 Influenza Vaccine (#1) 2025 SDOH Screening 11/19/2025 11/19/2024 Depression Monitoring 12/17/2025 06/16/2025 , 06/16/2025 Alcohol/Substance Use Screening 06/16/2026 06/16/2025 Disability Screening 06/16/2026 06/16/2025 Tobacco Screening 08/13/2026 08/13/2025 DTaP/Tdap/Td Vaccines (3 - T d or [...] patient's age to complete this topic Meningococcal B Vaccine Aged Out No l onger eligible based on patient's age to complete [...] 08/13/2025 4:34 PM EDT Bilateral flank pain CO ARTHROCENTESIS ASPIR&/INJ MAJOR JT/BURSA W/O US Routine 07/15/2025 10:32 AM EDT Chronic right shoulder pain from Last 3 Months Results * POCT urinalysis dipstick manually resulted (CPT 43491) (08/13/2025 4:34 PM EDT) Color, UA Yellow Clarity, UA Clear Glucose, UA Negative Bilirubin, UA Negative Ketones, UA Negative Spec Grav, UA 1.015 Blood, UA Negative Negative, None Detected pH, UA 6.5 Protein, UA Negative Urobilinogen, UA 0.2 Leukocytes, UA Negative Negative, Rare, Trace Nitrite, UA Negative Negative, None Detected Appearance, UA clear QC Media Lot # Comment:[id number] Lot# Expiration Date Comment:04/28/2026 Urine (Urine, Random) 08/13/2025 4:34 PM EDT Kasey Reardon MD POINT OF CARE TEST ENTER/ED IT ORDERABLES Final Result * CO ARTHROCENTESIS ASPIR&/INJ MAJOR JT/BURSA W/O US (07/15/2025 10:32 AM EDT) Narrative Ava Yusuf MD - 07/15/2025 10:32 AM EDT Ava Yusuf MD 07/15/2025 10:43 AM Arthrocentesis Date/Time: 07/15/2025 10:32 AM Performed by: Ava Yusuf MD Authorized by: Ava Yusuf MD Consent: Consent obtained: Verbal and written Consent given by: Patient Risks, benefits, and alternatives were discussed: yes Risks discussed: Pain Alternatives discussed: Referral [place] protocol: Procedure explained and questions answered to patient or proxy's satisfaction: yes Relevant documents present and verified: yes Test results available: yes Imaging studies available: yes Required blood products, implants, devices, and special equipment available: yes Site/side marked: yes Immediately prior to procedure, a time out was called: yes Patient identity confirmed: Verbally with patient Location: Location: Shoulder Shoulder: R glenohumeral Anesthesia: Anesthesia method: Topical application Procedure details: Preparation: Patient was prepped and draped in usual sterile fashion Needle gauge: 22 G Ultrasound guidance: no Approach: Posterior Steroid injected: yes Specimen collected: no Post-procedure details: Dressing: Adhesive bandage Procedure completion: Tolerated us Ava Yusuf MD IN CLINIC/BEDSIDE ORDERABLES Fin al Result from Last 3 Months [facility] Care Teams Strategic Planning Analyst Relationship Specialty Start Date End Date Kasey Reardon MD [address] [place] [address] [place] [address] PCP - General Internal Medicine 06/15/21
--- OUTSIDE RECORDS SUMMARY | 2025-08-13 19:37 | XMS_ITS | Encounter Summary ---
Author Organization [employer] Address 75 [facility] 7 [place] [address] Care Team Providers Care Senior Wind Energy Consultant Name Role Phone Kasey Reardon MD Primary Care Provider [phone]- [phone] Reason for Visit * Reason Onset Date Comments Med Refill 01/23/2025 Encounter Details Date Type Department Care Team ([facility] st Contact Info) Description 01/23/2025 Refill [facility] CH[facility] MED & PEDS [address] [place], [place] [phone] Kasey Reardon MD [address] [place] [address] Chronic bilateral low back pain with left-sided [...] documented as of this encounter Care Teams Senior Wind Energy Consultant Relationship Specialty Start Date End Date Kasey Reardon MD [address] [place] [address] PCP - General Internal Medicine 06/15/21 documented as of this encounter
--- OUTSIDE RECORDS SUMMARY | 2025-08-13 19:37 | XMS_ITS | Encounter Summary ---
Author Organization [employer] Address 75 [facility] 7 [place] [address] Care Team Providers Care Sealer Operator Name Role Phone Kasey Reardon MD Primary Care Provider [phone]- [phone] Reason for Referral * Consultation (Routine) - Closed Specialty Diagnoses / Procedures Referred By Ashley t Referred To Contact Pain Medicine Diagnoses Paresthesias Kasey Reardon MD [address] [place] [address] Phone: tel: fax: Rickey Leary MD [address] [place] [address] [address] [place] [address] Phone: tel: fax: Referral ID Status Reason Start Date Expiration Date V isits Requested Visits Authorized [id number] Closed Specialty Services Required 12/05/2024 12/05/2025 1 1 * Imaging (Routine) - Closed Specialty Diagnoses / Procedures Referred By Contac t Referred To Contact Radiology Diagnoses Transaminitis Procedures US Abdomen Complete Kasey Reardon MD [address] [place] [address] Phone: tel: fax: [facility] [address], [address] [place] [address] Phone: tel: fax: Referral ID Status Reason Start Date Expiration Date Visits Re quested Visits Authorized [id number] Closed 11/21/2024 11/21/2025 1 1 Encounter Details Date Type Department Care Team (Late st Contact Info) Description 11/21/2024 Orders Only [facility] MED & PEDS [address] [place] [address] Kasey Reardon MD [address] [place] [address] Transaminitis (Primary Dx); Paresthesias Social History Tobacco [...] documented as of this encounter Care Teams Sealer Operator Relationship Specialty Start Date End Date Kasey Reradon MD [address] [place] [id number] PCP - General Internal Medicine 06/15/21 documented as of this encounter
--- OUTSIDE RECORDS SUMMARY | 2025-08-13 19:37 | XMS_ITS | Encounter Summary ---
Author Organization [employer] Address [address] [facility] [address] 7[address] [place] [address] Care Team Providers Care Recruiting Specialist Name Role Phone Kasey Reardon MD Primary Care Provider [phone] Encounter Details Date Type Department Care Team (Latest Contact Info) Description 08/13/2025 Travel Social History Tobacco Use Types Packs/Day [...] documented as of this encounter Care Teams Recruiting Specialist Relationship Specialty Start Date End Date Kasey Reardon MD [address] [place] [address] PCP - General Internal Medicine 06/15/21 documented as of this encounter
--- OUTSIDE RECORDS SUMMARY | 2025-08-13 19:37 | XMS_ITS | Encounter Summary ---
Author Organization [employer] Address 75 [facility] 7t [place] [address] Care Team Providers Care Orientation And Mobility Instructor Name Role Phone Kasey Reardon MD Primary Care Provider [phone]- [phone] Encounter Details Date Type Department Care Team ([facility] st Contact Info) Description 03/17/2025 Orders Only [facility] CHC MED & PEDS [address] [place], [place] [phone] Kasey Reardon MD [address] [place], [place] [phone] Chronic right shoulder pain (Primary Dx) Social History Tobacco Use Types Packs/Day Years [...] as of this encounter Plan of Treatment Scheduled Orders Name Type Priority Associated Diagnoses Orde r Schedule XR Shoulder 2+ Views Right Imaging Routine Chronic right shoulder pain Expected: 03/21/2025 (Approximate), Expires: 03/17/2026 documented as of this encounter Visit Diagnoses Diagnosis Chronic right shoulder pain- Primary Pain in joint, shoulder region documented in this encounter Additional Health Concerns Assessment Noted Time PHQ-9 Depression Total Score: 9 11/19/19 25 1:25 PM EST documented as of this encounter Care Teams Orientation And Mobility Instructor Relationship Specialty Start Date End Date Kasey Reardon MD [address] [place] [address] PCP - General Internal Medicine 06/15/21 documented as of this encounter
--- OUTSIDE RECORDS SUMMARY | 2025-08-13 19:37 | XMS_ITS | Encounter Summary ---
Author Organization [employer] Address 75 [facility] 7t [place] [address] Care Team Providers Care General Repair Mechanic Name Role Phone Kasey Reardon MD Primary Care Provider [phone]- [phone] Encounter Details Date Type Department Care Team (Late st Contact Info) Description 01/02/2025 Orders Only [facility] [address] [place] [address] Kasey Reardon MD [address] [place], [place] [phone] Chronic right shoulder pain (Primary Dx) Social [...] documented as of this encounter Care Teams General Repair Mechanic Relationship Specialty Start Date End Date Kasey Reardon MD [address] [place] [id number] PCP - General Internal Medicine 06/15/21 documented as of this encounter
== END 2025-08-13 18:43 | disposition home or self-care (01) ==
LOC: HO.HHCLNP 18:42
PROVIDERS: Visit Provider Internal Medicine
DX: R10.A3 Flank pain, bilateral (principal)
CPT/HCPCS: 87086